=== PATIENT | female | born 1995 | race Caucasian/White ===

== ENCOUNTER → 2020-09-08 12:16 | Outpatient (CLI) | payer OTHER, SELFPAY ==
[2020-09-08 13:14] LABS: Alanine Aminotransferase 15 IU/L (<35); Albumin 4.9 g/dL (3.5-5.0); Albumin Globulin Ratio 1.6 (1.0-2.8); Alkaline Phosphatase 49 U/L (38-126); Aspartate Aminotransferase 26 IU/L (14-36); BUN Creatinine Ratio 15.6 (6-22); Bilirubin Total 0.9 mg/dL (0.2-1.3); Blood Urea Nitrogen 12 mg/dL (7-17); Calcium 9.7 mg/dL (8.4-10.2); Carbon Dioxide 28 mmol/L (22-32); Chloride 105 mmol/L (98-107); Estimated Glomerular Filt Rate > 60.0 mL/min (>60); Glucose 95 mg/dL (70-100); HEMOLYSIS < 15 (0-50); Potassium 4.3 mmol/L (3.4-5.1); Sodium 140 mmol/L (137-145); Total Protein 7.9 g/dL (6.3-8.2)
[2020-09-08 13:28] LABS: Add Manual Diff / Slide Review NO; Basophils Absolute Auto 0 /uL (0-100); Basophils Percent Auto 0.4 % (0-2); Eosinophils Absolute Auto 100 /uL (0-450); Eosinophils Percent Auto 1.2 % (2-4); Hematocrit 41.2 % (36-46); Hemoglobin 13.6 g/dL (12.0-16.0); Lymphocytes Absolute Auto 1300 /uL (1100-4500); Lymphocytes Percent Auto 28.8 % (25-40); Mean Corpuscular Hemoglobin 29.7 PG (26-34); Monocytes Absolute Auto 500 /uL (0-900); Neutrophils Absolute Auto 2800 /uL (1500-7000); Neutrophils Percent Auto 59.6 % (50-75); Platelet Count 205 X10^3/uL (150-400); Red Blood Cell Count 4.58 X10^6/uL (4.0-5.2); Red Cell Distribution Width 12.5 % (11.6-14.8); White Blood Cell Count 4.6 X10^3/uL (4.5-11.0)
[2020-09-08 14:09] LABS: Thyroid Stimulating Hormone 0.788 uIU/mL (0.47-4.68)
[2020-09-08 15:23] LABS: Vitamin D 25 Hydroxy (D3) 39.5 ng/mL (30.0-100.0)
== END ==
PROVIDERS: PCP Registered Nurse; Referring Provider Registered Nurse; Visit Provider Registered Nurse
DX: R53.83 Other fatigue (principal)
CPT/HCPCS: 36415; 80053; 82306; 84439; 84443; 85025

== ENCOUNTER → 2020-12-07 08:57 | Outpatient (CLI) | payer OTHER, SELFPAY ==
[2020-12-07 09:26] LABS: COVID19 -Nasal RAPID Negative (Negative)
== END ==
PROVIDERS: PCP Registered Nurse; Visit Provider Nurse Practitioner
DX: J02.9 Acute pharyngitis, unspecified (principal); Z20.822 Contact with and (suspected) exposure to COVID-19
CPT/HCPCS: 87070; 87635

== ENCOUNTER → 2021-03-16 10:52 | Outpatient (CLI) | payer OTHER, SELFPAY ==
[2021-03-16 11:24] LABS: COVID19 -Nasal RAPID Negative (Negative)
== END ==
PROVIDERS: Family Provider Family Medicine; PCP Family Medicine; Visit Provider Physician Assistant
DX: J02.9 Acute pharyngitis, unspecified (principal); R05 Cough; Z20.822 Contact with and (suspected) exposure to COVID-19
CPT/HCPCS: 87070; 87635

== ENCOUNTER 2021-06-04 10:15 | Outpatient (RCR) | payer OTHER, SELFPAY ==
--- NOTE | 2021-03-02 17:03 | PT.OIE ---
Current Diagnoses Other chronic pain (03/02/21) Lumbago with sciatica, left side (03/02/21) Muscle weakness (generalized) (03/02/21) Past Medical History (Last Reviewed 01/29/21 @ 17:05 by Henrry Carlson MD) Chronic back pain Depression No significant medical problems Visit Care Team Role Provider Type Henrry Carlson MD Attending Provider Physician Family Provider Primary Care Provider Referring Provider Specialty: Family Practice Address: [address] [place] [address], [facility] Email: [email or web address] Physical Therapy Initial Evaluation PT-OP-A Visit Information Start: 02/27/21 17:21 Freq: Status: Active Protocol: Document 03/02/21 09:37 LRN (Rec: 03/02/21 11:16 LRN [id number]) Out-Patient Physical Therapy Visit Information Visit Information Visit Type Initial Evaluation Visit Start Time 09:07 Visit Stop Time 09:52 Total Visit Minutes 45 Visit Number 1 Evaluation Information Evaluation Date 03/02/21 Precautions Precautions Mild neck pain, hx or disc bulge and tear. 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 Pt reports she started working out again and is now flared up but feels she needs to work out and it is causing her a little issue. Pt has intermittent low back pain most noticeable with lifting and increased activity . She states she has decreased sensation most of the time in the lateral L thigh, and intermittent sensation loss when at its worst. She has seen a chiro for the past 2 yrs with relief, but for the past year has had 30-40% relief. She has been tapered to once every 2 weeks. She is wanting to try something different for treatment, and because she is also considering having children in the future she wants to figure things out now . Prior Treatments and Tests MRI at initial injury showing L4/L5 Dsic bulge and tearing. [facility] cardiac care unit nurse (now 1x every 2 wks) took X- rays showed scoliosis (initial injury ms relaxors that she chose not to take). Small TNS unit used occasionally for sitting long, flying, or when bad. 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 Pt reports MRI indicated she had a protruding disc (L4-L5) and tearing that caused constant LBP for a year. Pt states it took 1 yr for the back to heal enough that she now has intermittent back pain. 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 Treatment Goals Patient/Caregiver Goals Education in self care to prevent worsening of symptoms and how to care for back. . HEP for self care to improve her activity tolerance. Decrease her pain level to 1-2 /10 and reduction of sharp pain with increased activity. 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 Current Functional Impairments (Reported) Functional Limitations- ADL's Lifting 1 yr old (22-25#). 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 Spouse is . Functional Limitations- Recreation/ Some barre ex and squats/push Hobbies ups 2-3x/week. Personal Factors Other Personal Factors That May Effect Nanny of 1 yr old. Therapy/Recovery Getting in 20 days, so stressed. PT-OP-C Subjective Start: 02/27/21 17:21 Freq: Status: Active Protocol: Document 03/02/21 09:37 LRN (Rec: 03/02/21 11:16 LRN [id number]) Patient Questionnaires Oswestry Low Back Index Oswestry Score 36 Oswestry Impairment 20 to 39% Impaired (Score 20- 39) OP-PT Pain Assessment Pain Assessment Grid Paper Pain Assessment Grid Completed Yes Location Yuval knees Pain Location Details Anterior/posterior knees, rated 3-4/10 Intensity 4 Scale Used Numeric (0 - 10) Description Aching,Sharp Frequency Intermittent Pain Aggravating Factors Activity Other Pain Aggravating Factors Squatting low back Pain Location Details L4,L5 center of back radiating down posterior yuval lateral hips/legs Intensity 5 Scale Used Numeric (0 - 10) Description Aching,Sharp Frequency Intermittent Radiating Location Down the leg sharp shooting pain with walking or irritation. Pain Aggravating Factors Activity,Lifting Other Pain Aggravating Factors Lifting back without core, running, walking cause shooting pain up to back. PT-OP-H Neuro Start: 02/27/21 17:21 Freq: Status: Active Protocol: Document 03/02/21 09:37 LRN (Rec: 03/02/21 11:16 LRN [id number]) Sensation Evaluation Gross Sensation Gross Sensation Left LE Impaired Comments Summary Comments Decreased sensation L lateral thigh Deep Tendon Reflex & Clonus Assessment Deep Tendon Reflex Bilateral Achilles Deep Tendon Reflex 3+ Normal But Brisk Bilateral Patellar Deep Tendon Reflex 3+ Normal But Brisk PT-OP-J Posture/Palpation/Skin Start: 02/27/21 17:21 Freq: Status: Active Protocol: Document 03/02/21 09:37 LRN (Rec: 03/02/21 11:16 LRN [id number]) Posture Evaluation Position Standing Head/C-Spine Posture Neutral Position,Forward Head T-Spine Posture Flexible Scoliosis on (L) L-Spine Posture Flattened Pelvis Posture (L) Rotated Anterior,(R) Rotated Posterior,(R) Iliac Crest Superior Knee Posture (L) Genu Valgus,(R) Genu Valgus,(L) Genu Recurvatum,(R) Genu Recurvatum Ankle/Foot Posture (L) Calcaneal Inversion Foot Arch (R) High Arch,(L) Medium Arch Comments Posture Comments Innominate: R posterior rot, L anterior rotated. PT-OP-K Range of Motion Start: 02/27/21 17:21 Freq: Status: Active Protocol: Document 03/02/21 09:37 LRN (Rec: 03/02/21 11:16 LRN [id number]) Lumbar Spine Range of Motion Lumbar Spine Active Degrees Testing Position Standing Flexion 115 Extension 20 Rotation Left 45 Rotation Right 45 Lateral Flexion Left 20 Lateral Flexion Right 5 ROM Limitations Pain Comments Trunk flex is with 80 deg's hip flex Trunk ext is with 3 deg's hip ext Hip Goniometric Range of Motion Hip Right Passive Testing Position Supine Internal Rotation 20 External Rotation 50 Left Passive Testing Position Supine Internal Rotation 20 External Rotation 60 PT-OP-L Special Tests Start: 02/27/21 17:21 Freq: Status: Active Protocol: Document 03/02/21 09:37 LRN (Rec: 03/02/21 11:16 LRN [id number]) Special Tests Lumbar Spine Special Tests Ash Test Results + bilaterally, mildly Comments Excessive innominate mobility Vertical Spine Loading Test Results Excessive trunk ext with pain in LB Standing Flexion Test Results + repetitive flexion PT-OP-M Strength Start: 02/27/21 17:21 Freq: Status: Active Protocol: Document 03/02/21 09:37 LRN (Rec: 03/02/21 11:16 LRN [id number]) Trunk Strength Trunk Manual Muscle Testing Testing Position Supine Core Stabilization Pt is not able to maintain core stability with MMT of LE' s with trunk rotation noticeable. Hip Strength Hip Manual Muscle Testing Right Flexion (L2) 4+ Good+ Abduction 5 Normal Adduction 5 Normal External Rotation 4 Good Internal Rotation 4 Good Left Flexion (L2) 4+ Good+ Abduction 5 Normal Adduction 5 Normal External Rotation 3 Fair Internal Rotation 4 Good Knee Strength Knee Manual Muscle Testing Right Flexion (S2) 4 Good Extension (L3) 4 Good Left Flexion (S2) 4 Good Extension (L3) 4 Good Ankle/Foot Strength Ankle and Foot Manual Muscle Testing Right Comments Generally 4/5 Left Comments Generally 4/5 PT-OP-Q Treatments Start: 02/27/21 17:21 Freq: Status: Active Protocol: Document 03/02/21 09:37 LRN (Rec: 03/02/21 11:16 LRN [id number]) Self-Care/Home Management Treatment Education Patient Education Home Exercise Program Other Education Discussed results of evaluation, goals and plan of care. Activities Self-Care/Home Management Activities I/S pt in Ilipsoas stretch ( Ash Test position) PT-OP-T Assessment and Plan Start: 02/27/21 17:21 Freq: Status: Active Protocol: Document 03/02/21 09:37 LRN (Rec: 03/02/21 11:16 LRN [id number]) Physical Therapy Assessment Rehab Potential Rehabilitation Potential Good Evaluation Complexity Number of Personal Factors/Comorbidities 1-2 Number of Body Systems Impaired 4 or More Clinical Presentation at Evaluation Evolving Impairments Impairments Activity Tolerance,Pain, Posture,ROM,Soft Tissue Mobility,Strength,Transfers Goals Three Impairment Decreased activity tolerance Short Term Goal (STG) Decrease pain to 4/10 STG Duration 04/06/21 Aluminum Pool Installer Goal (LTG) Reduction of sharp pain with increased activity. LTG Duration 05/31/21 Two Impairment Pain Short Term Goal (STG) Education in self care (body mechanics, pain management) to prevent worsening of symptoms . STG Duration 03/16/21 Care Home Goal (LTG) Decrease her pain level to 1-2 /10 LTG Duration 05/01/21 One Impairment HEP Short Term Goal (STG) Pt educated in self care pain management techniques to include modalities, positioning, modification of exer and posture. STG Duration 03/30/21 Care Home Goal (LTG) HEP for self care to improve her activity tolerance. LTG Duration 05/01/21 Assessment Summary Assessment Pt is a 25 yo female with a history of L4, L5 disc protrusion and tearing 3 yrs ago. She demonstrates postural changes and innominates: R posterior rotated, L anterior rotated, decreased trunk FB (lumbar spine) and R SB mobility, and decreased R hip ER, bilateral IR & possibly Ilipsoas mobility. She appears to have good hip extension, but she excessively moves in the pelvis. She has core weakness and mild hip weakness except L hip IR is weak at 3/5. She has general weakness of her LE 's. Complaints of intermittent numbness in the L lateral thigh when at back pain is at its worst is probably related to the lateral femoral cutaneous nerve; therefore body mechanics and lumbar stabilization will be beneficial. The pt will benefit from skilled physical therapy for therapeutic ex and activity, body mechanics training, pelvic stabilization , manual therapy and pt education in self care, pain management and modalities as needed for pain. Physical Therapy Plan Frequency and Duration Frequency of Treatment 2x/Week Plan of Care Start Date 03/02/21 Plan of Care End Date 05/01/21 Therapeutic Interventions Therapeutic Interventions Balance Training,Gait Training ,Home Exercise Program,Joint Mobilizations,Manual Therapy, Neuromuscular Re-education, Patient/Caregiver Education, Self-Care/Home Management,Soft Tissue Mobilization,Taping, Therapeutic Activities, Therapeutic Exercises Modalities Cold Pack/Ice Massage,Electric Stimulation,Hot Packs, Traction- Mechanical, Ultrasound Next Visit Focus/Plan Next Note Type Treatment Note Next Visit Plan Check March test and correct pelvic obility f/b pelvic and lumbar stabilization. Manual stretch to Iliopsoas. LE strengthening, transfer training to reduce low back strain, body mechanics training, manual therapy for soft tissue dysfunction and pt education in self care, posture, pain management and modalities for pain.
--- NOTE | 2021-03-02 17:04 | PT.OPPOC ---
Physical, Occupational & Speech Therapy At [facility] Current Diagnoses Other chronic pain (03/02/21) Lumbago with sciatica, left side (03/02/21) Muscle weakness (generalized) (03/02/21) Visit Care Team Role Provider Type Henrry Carlson MD Attending Provider Physician Family Provider Primary Care Provider Referring Provider Specialty: Family Practice Address: [address] [place] [address], [facility] Email: [email or web address] Plan Of Care PT-OP-T Assessment and Plan Start: 02/27/21 17:21 Freq: Status: Active Protocol: Document 03/02/21 09:37 LRN (Rec: 03/02/21 11:16 LRN [id number]) Physical Therapy Assessment Rehab Potential Rehabilitation Potential Good Evaluation Complexity Number of Personal Factors/Comorbidities 1-2 Number of Body Systems Impaired 4 or More Clinical Presentation at Evaluation Evolving Impairments Impairments Activity Tolerance,Pain, Posture,ROM,Soft Tissue Mobility,Strength,Transfers Goals Three Impairment Decreased activity tolerance Short Term Goal (STG) Decrease pain to 4/10 STG Duration 04/06/21 Retirement Goal (LTG) Reduction of sharp pain with increased activity. LTG Duration 05/31/21 Two Impairment Pain Short Term Goal (STG) Education in self care (body mechanics, pain management) to prevent worsening of symptoms . STG Duration 03/16/21 Customer Experience Analyst Goal (LTG) Decrease her pain level to 1-2 /10 LTG Duration 05/01/21 One Impairment HEP Short Term Goal (STG) Pt educated in self care pain management techniques to include modalities, positioning, modification of exer and posture. STG Duration 03/30/21 Customer Experience Analyst Goal (LTG) HEP for self care to improve her activity tolerance. LTG Duration 05/01/21 Assessment Summary Assessment Pt is a 25 yo female with a history of L4, L5 disc protrusion and tearing 3 yrs ago. She demonstrates postural changes and innominates: R posterior rotated, L anterior rotated, decreased trunk FB (lumbar spine) and R SB mobility, and decreased R hip ER, bilateral IR & possibly Ilipsoas mobility. She appears to have good hip extension, but she excessively moves in the pelvis. She has core weakness and mild hip weakness except L hip IR is weak at 3/5. She has general weakness of her LE 's. Complaints of intermittent numbness in the L lateral thigh when at back pain is at its worst is probably related to the lateral femoral cutaneous nerve; therefore body mechanics and lumbar stabilization will be beneficial. The pt will benefit from skilled physical therapy for therapeutic ex and activity, body mechanics training, pelvic stabilization , manual therapy and pt education in self care, pain management and modalities as needed for pain. Physical Therapy Plan Frequency and Duration Frequency of Treatment 2x/Week Plan of Care Start Date 03/02/21 Plan of Care End Date 05/01/21 Therapeutic Interventions Therapeutic Interventions Balance Training,Gait Training ,Home Exercise Program,Joint Mobilizations,Manual Therapy, Neuromuscular Re-education, Patient/Caregiver Education, Self-Care/Home Management,Soft Tissue Mobilization,Taping, Therapeutic Activities, Therapeutic Exercises Modalities Cold Pack/Ice Massage,Electric Stimulation,Hot Packs, Traction- Mechanical, Ultrasound Next Visit Focus/Plan Next Note Type Treatment Note Next Visit Plan Check March test and correct pelvic obility f/b pelvic and lumbar stabilization. Manual stretch to Iliopsoas. LE strengthening, transfer training to reduce low back strain, body mechanics training, manual therapy for soft tissue dysfunction and pt education in self care, posture, pain management and modalities for pain. Plan of Care Dates Plan of Care Start Date 03/02/21 Plan of Care End Date 05/01/21 Electronically Signed by: Zulma Morris, PT 03/02/21 [id number] Please Sign and Return: I have reviewed this Plan of Care and certify that the skilled therapy services above are required to meet the patient?s needs. Physician Signature Date Printed Name and Credentials Clinical Instructor Signature Printed Name and Credentials
--- NOTE | 2021-03-05 12:29 | PT.OTN ---
Current Diagnoses Other chronic pain (03/05/21) Lumbago with sciatica, left side (03/05/21) Muscle weakness (generalized) (03/05/21) Physical Therapy Treatment Note PT-OP-A Visit Information Start: 02/27/21 17:21 Freq: Status: Active Protocol: Document 03/05/21 10:32 LRN (Rec: 03/05/21 12:28 LRN [id number]) Out-Patient Physical Therapy Visit Information Visit Information Visit Type Treatment Note Visit Start Time 10:32 Visit Stop Time 11:19 Total Visit Minutes 47 Visit Number 2 Evaluation Information Evaluation Date 03/02/21 Precautions Precautions Mild neck pain, hx or disc bulge and tear. 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 Pt reports she started working out again and is now flared up but feels she needs to work out and it is causing her a little issue. Pt has intermittent low back pain most noticeable with lifting and increased activity . She states she has decreased sensation most of the time in the lateral L thigh, and intermittent sensation loss when at its worst. She has seen a chiro for the past 2 yrs with relief, but for the past year has had 30-40% relief. She has been tapered to once every 2 weeks. She is wanting to try something different for treatment, and because she is also considering having children in the future she wants to figure things out now . Prior Treatments and Tests MRI at initial injury showing L4/L5 Dsic bulge and tearing. [facility] [address] medicare coordinator (now 1x every 2 wks) took X- rays showed scoliosis (initial injury ms relaxors that she chose not to take). Small TNS unit used occasionally for sitting long, flying, or when bad. 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 Pt reports MRI indicated she had a protruding disc (L4-L5) and tearing that caused constant LBP for a year. Pt states it took 1 yr for the back to heal enough that she now has intermittent back pain. 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 Treatment Goals Patient/Caregiver Goals Education in self care to prevent worsening of symptoms and how to care for back. . HEP for self care to improve her activity tolerance. Decrease her pain level to 1-2 /10 and reduction of sharp pain with increased activity. 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 Current Functional Impairments (Reported) Functional Limitations- ADL's Lifting 1 yr old (22-25#). 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 Spouse is . Functional Limitations- Recreation/ Some barre ex and squats/push Hobbies ups 2-3x/week. Personal Factors Other Personal Factors That May Effect Nanny of 1 yr old. Therapy/Recovery Getting in 20 days, so stressed. PT-OP-C Subjective Start: 02/27/21 17:21 Freq: Status: Active Protocol: Document 03/05/21 10:32 LRN (Rec: 03/05/21 12:28 LRN [id number]) OP-PT Subjective Patient Comments Patient Comments No change didn't work out this weekend Planning on restarting tomorrow. PT-OP-H Neuro Start: 02/27/21 17:21 Freq: Status: Active Protocol: Document 03/02/21 09:37 LRN (Rec: 03/02/21 11:16 LRN [id number]) Sensation Evaluation Gross Sensation Gross Sensation Left LE Impaired Comments Summary Comments Decreased sensation L lateral thigh Deep Tendon Reflex & Clonus Assessment Deep Tendon Reflex Bilateral Achilles Deep Tendon Reflex 3+ Normal But Brisk Bilateral Patellar Deep Tendon Reflex 3+ Normal But Brisk PT-OP-J Posture/Palpation/Skin Start: 02/27/21 17:21 Freq: Status: Active Protocol: Document 03/05/21 10:32 LRN (Rec: 03/05/21 12:28 LRN [id number]) Palpation Assessment Location ASIS Palpation Location ASIS Palpation Details Supine: L slightly deep, sligtly superior to R side. PT-OP-K Range of Motion Start: 02/27/21 17:21 Freq: Status: Active Protocol: Document 03/02/21 09:37 LRN (Rec: 03/02/21 11:16 LRN [id number]) Lumbar Spine Range of Motion Lumbar Spine Active Degrees Testing Position Standing Flexion 115 Extension 20 Rotation Left 45 Rotation Right 45 Lateral Flexion Left 20 Lateral Flexion Right 5 ROM Limitations Pain Comments Trunk flex is with 80 deg's hip flex Trunk ext is with 3 deg's hip ext Hip Goniometric Range of Motion Hip Right Passive Testing Position Supine Internal Rotation 20 External Rotation 50 Left Passive Testing Position Supine Internal Rotation 20 External Rotation 60 PT-OP-L Special Tests Start: 02/27/21 17:21 Freq: Status: Active Protocol: Document 03/05/21 10:32 LRN (Rec: 03/05/21 12:28 LRN [id number]) Special Tests Lumbar Spine Special Tests March Test Comments R side moves a little more than L PT-OP-M Strength Start: 02/27/21 17:21 Freq: Status: Active Protocol: Document 03/02/21 09:37 LRN (Rec: 03/02/21 11:16 LRN [id number]) Trunk Strength Trunk Manual Muscle Testing Testing Position Supine Core Stabilization Pt is not able to maintain core stability with MMT of LE' s with trunk rotation noticeable. Hip Strength Hip Manual Muscle Testing Right Flexion (L2) 4+ Good+ Abduction 5 Normal Adduction 5 Normal External Rotation 4 Good Internal Rotation 4 Good Left Flexion (L2) 4+ Good+ Abduction 5 Normal Adduction 5 Normal External Rotation 3 Fair Internal Rotation 4 Good Knee Strength Knee Manual Muscle Testing Right Flexion (S2) 4 Good Extension (L3) 4 Good Left Flexion (S2) 4 Good Extension (L3) 4 Good Ankle/Foot Strength Ankle and Foot Manual Muscle Testing Right Comments Generally 4/5 Left Comments Generally 4/5 PT-OP-Q Treatments Start: 02/27/21 17:21 Freq: Status: Active Protocol: Document 03/05/21 10:32 LRN (Rec: 03/05/21 12:28 LRN [id number]) Therapeutic Exercises Supine Exercises BKFO w/deep breathing Supine Exercise Name BKFO w/deep breathing with & w /o TB Side bilateral Resistance Lev 2 TB, pillow Reps/Minutes 12'' Comments Extra time for trianing of coordination of movement( breathing & w/TA tight) LE Roll in/out w/deep breathing Supine Exercise Name LE Roll in/out w/deep breathing Reps/Minutes 8' Comments Extra time with phys cuing needed to coordinate movement. Deep Breathing Supine Exercise Name deep Breathing Side bilateral Reps/Minutes 3' Comments Phys cuing and self cuing needed for abdominal excursion Self-Care/Home Management Treatment Education Patient Education Home Exercise Program Other Education Pt educated in proper breathing with ex's and connection to PF strength and bladder positioning. Discussed at length pt's constipation episodes and recommendations to decrease constipation. Activities Self-Care/Home Management Activities I/S pt in LE roll in/outs & bridgning with TB around knees . Issued & reviewed HEP: LE roll in/outs & Core stab of Bridging with added I/S for breathing and use of TBand for hip AB. PT-OP-T Assessment and Plan Start: 02/27/21 17:21 Freq: Status: Active Protocol: Document 03/05/21 10:32 LRN (Rec: 03/05/21 12:28 LRN [id number]) Physical Therapy Assessment Goals Three Impairment Decreased activity tolerance Short Term Goal (STG) Decrease pain to 4/10 STG Duration 04/06/21 Retirement Goal (LTG) Reduction of sharp pain with increased activity. LTG Duration 05/31/21 Two Impairment Pain Short Term Goal (STG) Education in self care (body mechanics, pain management) to prevent worsening of symptoms . STG Duration 03/16/21 Inspector Assembly Goal (LTG) Decrease her pain level to 1-2 /10 LTG Duration 05/01/21 One Impairment HEP Short Term Goal (STG) Pt educated in self care pain management techniques to include modalities, positioning, modification of exer and posture. STG Duration 03/30/21 Retirement Goal (LTG) HEP for self care to improve her activity tolerance. LTG Duration 05/01/21 Assessment Summary Assessment Pt mostly level in pelvis to start. Slight deep in supine on L ASIS. Pt TA tght and tends to breathing. With bridging pt L ASIS tends to drop down and L Paraspinals tighter than R. Physical Therapy Plan Frequency and Duration Frequency of Treatment 2x/Week Plan of Care Start Date 03/02/21 Plan of Care End Date 05/01/21 Next Visit Focus/Plan Next Note Type Treatment Note Next Visit Plan Review issued HEP and monitor pelvic/core stability with bridge keeping neutral spine positioning. Pelvic and lumbar stabilization. ?Manual stretch to Iliopsoas. LE strengthening, transfer training to reduce low back strain, body mechanics training, manual therapy for soft tissue dysfunction and pt education in self care, posture, pain management and modalities for pain.
--- NOTE | 2021-04-06 10:04 | PT.OTN ---
Current Diagnoses Other chronic pain (04/06/21) Lumbago with sciatica, left side (04/06/21) Muscle weakness (generalized) (04/06/21) Physical Therapy Treatment Note PT-OP-A Visit Information Start: 02/27/21 17:21 Freq: Status: Active Protocol: Document 04/06/21 09:05 LRN (Rec: 04/06/21 10:03 LRN [id number]) Out-Patient Physical Therapy Visit Information Visit Information Visit Type Treatment Note Visit Start Time 09:04 Visit Stop Time 09:46 Total Visit Minutes 42 Visit Number 3 Evaluation Information Evaluation Date 03/02/21 Precautions Precautions Mild neck pain, hx or disc bulge and tear. PT-OP-B Current Condition Start: 02/27/21 17:21 Freq: Status: Active Protocol: Document 03/02/21 09:37 LRN (Rec: 03/02/21 11:16 LRN [id number]) Current Condition History of Current Condition Onset Date 2 yrs ago Current Complaints Intermittent sharp LBP that radiates into roll handler legs/ knees, rated 3-4/10 History of Current Condition See Developmental History section. Pt reports she started working out again and is now flared up but feels she needs to work out and it is causing her a little issue. Pt has intermittent low back pain most noticeable with lifting and increased activity . She states she has decreased sensation most of the time in the lateral L thigh, and intermittent sensation loss when at its worst. She has seen a chiro for the past 2 yrs with relief, but for the past year has had 30-40% relief. She has been tapered to once every 2 weeks. She is wanting to try something different for treatment, and because she is also considering having children in the future she wants to figure things out now . Prior Treatments and Tests MRI at initial injury showing L4/L5 Dsic bulge and tearing. [facility] [address] ocular care technician (now 1x every 2 wks) took X- rays showed scoliosis (initial injury ms relaxors that she chose not to take). Small TNS unit used occasionally for sitting long, flying, or when bad. 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 Pt reports MRI indicated she had a protruding disc (L4-L5) and tearing that caused constant LBP for a year. Pt states it took 1 yr for the back to heal enough that she now has intermittent back pain. 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 Treatment Goals Patient/Caregiver Goals Education in self care to prevent worsening of symptoms and how to care for back. . HEP for self care to improve her activity tolerance. Decrease her pain level to 1-2 /10 and reduction of sharp pain with increased activity. 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 Current Functional Impairments (Reported) Functional Limitations- ADL's Lifting 1 yr old (22-25#). 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 Spouse is . Functional Limitations- Recreation/ Some barre ex and squats/push Hobbies ups 2-3x/week. Personal Factors Other Personal Factors That May Effect Nanny of 1 yr old. Therapy/Recovery Getting in 20 days, so stressed. PT-OP-C Subjective Start: 02/27/21 17:21 Freq: Status: Active Protocol: Document 04/06/21 09:05 LRN (Rec: 04/06/21 10:03 LRN [id number]) OP-PT Subjective Patient Comments Patient Comments Hurting more due to sitting and plan travels. Hips and back pain is worse. For 2 weeks has been constipated and has been taking laxatives. Has gone 2 good times in past 2 weeks, other times not good stools. Pain in LBP/L hip is 4-5/10, Sensation in L lateral thigh is normal. 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 PT-OP-H Neuro Start: 02/27/21 17:21 Freq: Status: Active Protocol: Document 03/02/21 09:37 LRN (Rec: 03/02/21 11:16 LRN [id number]) Sensation Evaluation Gross Sensation Gross Sensation Left LE Impaired Comments Summary Comments Decreased sensation L lateral thigh Deep Tendon Reflex & Clonus Assessment Deep Tendon Reflex Bilateral Achilles Deep Tendon Reflex 3+ Normal But Brisk Bilateral Patellar Deep Tendon Reflex 3+ Normal But Brisk PT-OP-J Posture/Palpation/Skin Start: 02/27/21 17:21 Freq: Status: Active Protocol: Document 03/05/21 10:32 LRN (Rec: 03/05/21 12:28 LRN [id number]) Palpation Assessment Location ASIS Palpation Location ASIS Palpation Details Supine: L slightly deep, sligtly superior to R side. PT-OP-K Range of Motion Start: 02/27/21 17:21 Freq: Status: Active Protocol: Document 03/02/21 09:37 LRN (Rec: 03/02/21 11:16 LRN [id number]) Lumbar Spine Range of Motion Lumbar Spine Active Degrees Testing Position Standing Flexion 115 Extension 20 Rotation Left 45 Rotation Right 45 Lateral Flexion Left 20 Lateral Flexion Right 5 ROM Limitations Pain Comments Trunk flex is with 80 deg's hip flex Trunk ext is with 3 deg's hip ext Hip Goniometric Range of Motion Hip Right Passive Testing Position Supine Internal Rotation 20 External Rotation 50 Left Passive Testing Position Supine Internal Rotation 20 External Rotation 60 PT-OP-L Special Tests Start: 02/27/21 17:21 Freq: Status: Active Protocol: Document 03/05/21 10:32 LRN (Rec: 03/05/21 12:28 LRN [id number]) Special Tests Lumbar Spine Special Tests March Test Comments R side moves a little more than L PT-OP-M Strength Start: 02/27/21 17:21 Freq: Status: Active Protocol: Document 03/02/21 09:37 LRN (Rec: 03/02/21 11:16 LRN [id number]) Trunk Strength Trunk Manual Muscle Testing Testing Position Supine Core Stabilization Pt is not able to maintain core stability with MMT of LE' s with trunk rotation noticeable. Hip Strength Hip Manual Muscle Testing Right Flexion (L2) 4+ Good+ Abduction 5 Normal Adduction 5 Normal External Rotation 4 Good Internal Rotation 4 Good Left Flexion (L2) 4+ Good+ Abduction 5 Normal Adduction 5 Normal External Rotation 3 Fair Internal Rotation 4 Good Knee Strength Knee Manual Muscle Testing Right Flexion (S2) 4 Good Extension (L3) 4 Good Left Flexion (S2) 4 Good Extension (L3) 4 Good Ankle/Foot Strength Ankle and Foot Manual Muscle Testing Right Comments Generally 4/5 Left Comments Generally 4/5 PT-OP-Q Treatments Start: 02/27/21 17:21 Freq: Status: Active Protocol: Document 04/06/21 09:05 LRN (Rec: 04/06/21 10:03 LRN [id number]) Cardio Equipment Treadmill Duration (Minutes) 6 Speed 3.2 Incline 0 Therapeutic Exercises Supine Exercises Bridging Supine Exercise Name TA/Bridge focus on core stability Reps/Minutes 3'+2' after STM Hip flexor stretch Supine Exercise Name Ash Test stretch Side bilateral Reps/Minutes 6' BKTC stretch Supine Exercise Name KTC stretch Side bilateral Reps/Minutes 6' Comments Extra time for teaching seating of femoral head in socket prior to KTC Deep Breathing Supine Exercise Name deep Breathing Side bilateral Reps/Minutes 3' Comments Phys cuing and self cuing needed for abdominal excursion Manual Therapy Treatment Soft Tissue Mobilization Sacral Left ALA Body Location L ALA Mobilization Type Myofascial Release Intensity/Depth PA glide Body Position Supine Ilipsoas stretch Body Location Roque ilipsoas Mobilization Type Strumming,Sustained Pressure Intensity/Depth Moderate Body Position Supine w/knees on bolster Self-Care/Home Management Treatment Education Patient Education Home Exercise Program Other Education Reviewed pt's plan on return to exercise. Recommended pt avoid lying on small ball at roque Sacrum, and to hold Jane Work until core more stabiized . Reviewed precaution of ex ( coral abdominal ex) of breath holding. Activities Self-Care/Home Management Activities Reviewed pt's hip stretches ( Quad, hip ER/Piriformis, KTC). I/S pt in proper seating of femural head in socket prior to KTC stretch. PT-OP-T Assessment and Plan Start: 02/27/21 17:21 Freq: Status: Active Protocol: Document 04/06/21 09:05 LRN (Rec: 04/06/21 10:03 LRN [id number]) Physical Therapy Assessment Goals Three Impairment Decreased activity tolerance Short Term Goal (STG) Decrease pain to 4/10. (04/06/21: Pain rating is 4-5/ 10) STG Duration 04/06/21 (04/06/21: Progressing) Longterm Goal (LTG) Reduction of sharp pain with increased activity. (04/06/21: Sharp pains have decreased, but pt hasn't returned to prior routine on coming back from wedding). LTG Duration 05/31/21 (04/06/21: ? Progressing) Two Impairment Pain Short Term Goal (STG) Education in self care (body mechanics, pain management) to prevent worsening of symptoms . STG Duration 03/16/21 Longterm Goal (LTG) Decrease her pain level to 1-2 /10 LTG Duration 05/01/21 One Impairment HEP Short Term Goal (STG) Pt educated in self care pain management techniques to include modalities, positioning, modification of exer and posture. STG Duration 03/30/21 Longterm Goal (LTG) HEP for self care to improve her activity tolerance. LTG Duration 05/01/21 Progress Towards Goals Progress Comments Normalized pelvis deep L ASIS after STM. Assessment Summary Assessment Slighltly deep on L ASIS in supine and with bridging, normalized after manual STM, then pt able to perform bridge with neutral pelvis. Overall pt pain appears less on return from her wedding, but pt reported her pain was worse . Physical Therapy Plan Frequency and Duration Frequency of Treatment 2x/Week Plan of Care Start Date 03/02/21 Plan of Care End Date 05/01/21 Next Visit Focus/Plan Next Note Type Treatment Note Next Visit Plan Review POC for visits before POC expires. Pelvic and lumbar stabilization. ?Manual stretch to Iliopsoas. Pt education in self care, pain management, posture, and modalities for pain. LE strengthening, transfer training to reduce low back strain, body mechanics training, manual therapy for soft tissue dysfunction.
--- NOTE | 2021-04-09 07:30 | PT-OP ANOTE ---
Pt called to cancel appt at 04/08/21 at 23:28 not feeling well.
--- NOTE | 2021-04-30 09:39 | PT-OP ANOTE ---
Pt did not show for today's appt busy at work, when called her she stated she cancelled today's appt last week. 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 Pt has only been seen 2 appts since eval and had to cancel all other appts. She is unsure if will be able to make last appt 05/07 as of now with [facility]. [facility] informed pt that her POC expires tomorrow 05/01 and is unable to see [facility], needs to follow up with PT to update goals, POC and complete progress note, she verbalized understanding but doesn't know when can do this. service desk associate asked I forward her phone call to discuss further what can do for her. Pt is interested in continuing rehab but challenged with matching up her schedule with our available appts times.
--- NOTE | 2021-04-30 15:42 | PT.OTN ---
Current Diagnoses Other chronic pain (04/30/21) Lumbago with sciatica, left side (04/30/21) Muscle weakness (generalized) (04/30/21) Physical Therapy Treatment Note PT-OP-A Visit Information Start: 02/27/21 17:21 Freq: Status: Active Protocol: Document 04/30/21 11:30 AMB (Rec: 04/30/21 11:38 AMB [id number]) Out-Patient Physical Therapy Visit Information Visit Information Visit Type Progress Note Visit Start Time 11:30 Visit Stop Time 12:00 Total Visit Minutes 30 Visit Number 4 PT-OP-B Current Condition Start: 02/27/21 17:21 Freq: Status: Active Protocol: Document 03/02/21 09:37 LRN (Rec: 03/02/21 11:16 LRN [id number]) Current Condition History of Current Condition Onset Date 2 yrs ago Current Complaints Intermittent sharp LBP that radiates into agronomy 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 Pt reports she started working out again and is now flared up but feels she needs to work out and it is causing her a little issue. Pt has intermittent low back pain most noticeable with lifting and increased activity . She states she has decreased sensation most of the time in the lateral L thigh, and intermittent sensation loss when at its worst. She has seen a chiro for the past 2 yrs with relief, but for the past year has had 30-40% relief. She has been tapered to once every 2 weeks. She is wanting to try something different for treatment, and because she is also considering having children in the future she wants to figure things out now . Prior Treatments and Tests MRI at initial injury showing L4/L5 Dsic bulge and tearing. 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 Small TNS unit used occasionally for sitting long, flying, or when bad. 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 Pt reports MRI indicated she had a protruding disc (L4-L5) and tearing that caused constant LBP for a year. Pt states it took 1 yr for the back to heal enough that she now has intermittent back pain. 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 Treatment Goals Patient/Caregiver Goals Education in self care to prevent worsening of symptoms and how to care for back. . HEP for self care to improve her activity tolerance. Decrease her pain level to 1-2 /10 and reduction of sharp pain with increased activity. 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 Current Functional Impairments (Reported) Functional Limitations- ADL's Lifting 1 yr old (22-25#). 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 Spouse is . Functional Limitations- Recreation/ Some barre ex and squats/push Hobbies ups 2-3x/week. Personal Factors Other Personal Factors That May Effect Nanny of 1 yr old. Therapy/Recovery Getting in 20 days, so stressed. PT-OP-C Subjective Start: 02/27/21 17:21 Freq: Status: Active Protocol: Document 04/30/21 11:30 AMB (Rec: 04/30/21 15:42 AMB [id number]) OP-PT Subjective Patient Comments Patient Comments Pt reports pain has been variable, about 4/10 right now , but extended sitting hurts. Even doing bibi pose recentling increased tingling down Right leg, but usually Left leg is the one that is numb. PT-OP-H Neuro Start: 02/27/21 17:21 Freq: Status: Active Protocol: Document 03/02/21 09:37 LRN (Rec: 03/02/21 11:16 LRN [id number]) Sensation Evaluation Gross Sensation Gross Sensation Left LE Impaired Comments Summary Comments Decreased sensation L lateral thigh Deep Tendon Reflex & Clonus Assessment Deep Tendon Reflex Bilateral Achilles Deep Tendon Reflex 3+ Normal But Brisk Bilateral Patellar Deep Tendon Reflex 3+ Normal But Brisk PT-OP-J Posture/Palpation/Skin Start: 02/27/21 17:21 Freq: Status: Active Protocol: Document 03/05/21 10:32 LRN (Rec: 03/05/21 12:28 LRN [id number]) Palpation Assessment Location ASIS Palpation Location ASIS Palpation Details Supine: L slightly deep, sligtly superior to R side. PT-OP-K Range of Motion Start: 02/27/21 17:21 Freq: Status: Active Protocol: Document 03/02/21 09:37 LRN (Rec: 03/02/21 11:16 LRN [id number]) Lumbar Spine Range of Motion Lumbar Spine Active Degrees Testing Position Standing Flexion 115 Extension 20 Rotation Left 45 Rotation Right 45 Lateral Flexion Left 20 Lateral Flexion Right 5 ROM Limitations Pain Comments Trunk flex is with 80 deg's hip flex Trunk ext is with 3 deg's hip ext Hip Goniometric Range of Motion Hip Right Passive Testing Position Supine Internal Rotation 20 External Rotation 50 Left Passive Testing Position Supine Internal Rotation 20 External Rotation 60 PT-OP-L Special Tests Start: 02/27/21 17:21 Freq: Status: Active Protocol: Document 03/05/21 10:32 LRN (Rec: 03/05/21 12:28 LRN [id number]) Special Tests Lumbar Spine Special Tests March Test Comments R side moves a little more than L PT-OP-M Strength Start: 02/27/21 17:21 Freq: Status: Active Protocol: Document 03/02/21 09:37 LRN (Rec: 03/02/21 11:16 LRN [id number]) Trunk Strength Trunk Manual Muscle Testing Testing Position Supine Core Stabilization Pt is not able to maintain core stability with MMT of LE' s with trunk rotation noticeable. Hip Strength Hip Manual Muscle Testing Right Flexion (L2) 4+ Good+ Abduction 5 Normal Adduction 5 Normal External Rotation 4 Good Internal Rotation 4 Good Left Flexion (L2) 4+ Good+ Abduction 5 Normal Adduction 5 Normal External Rotation 3 Fair Internal Rotation 4 Good Knee Strength Knee Manual Muscle Testing Right Flexion (S2) 4 Good Extension (L3) 4 Good Left Flexion (S2) 4 Good Extension (L3) 4 Good Ankle/Foot Strength Ankle and Foot Manual Muscle Testing Right Comments Generally 4/5 Left Comments Generally 4/5 PT-OP-Q Treatments Start: 02/27/21 17:21 Freq: Status: Active Protocol: Document 04/30/21 11:30 AMB (Rec: 04/30/21 15:42 AMB [id number]) Therapeutic Exercises Supine Exercises IT band stretch Side bilateral Comments Tightness but no tingling Sitting Exercises TA stabilization Sitting Exercise Name with posterior pelvic tilt Therapeutic Activity Therapeutic Activity 1 Name Avoid bend, lift, twist Reps/Minutes 20 Comments Instruction in body mechanics with nannying, practiced lifting 10# from waist height, avoiding going into anterior pelvic tilt. Discussed how to put 15 month old in car seat, crib, and stroller with best body mechanics possible. PT-OP-T Assessment and Plan Start: 02/27/21 17:21 Freq: Status: Active Protocol: Document 04/30/21 11:30 AMB (Rec: 04/30/21 11:38 AMB [id number]) Physical Therapy Assessment Goals Three Impairment Decreased activity tolerance Short Term Goal (STG) Decrease pain to 4/10. (04/30/21: Pain rating is 4-5/ 10) STG Duration 4/10 current 04/30 [facility] Goal (LTG) Reduction of sharp pain with increased activity. (04/06/21: Sharp pains have decreased, but pt hasn't returned to prior routine on coming back from wedding). LTG Duration 06/25/21 Two Impairment Pain Short Term Goal (STG) Education in self care (body mechanics, pain management) to prevent worsening of symptoms . STG Duration 03/16/21--PROGRESS MADE [facility] Goal (LTG) Decrease her pain level to 1-2 /10 LTG Duration 06/25/21 One Impairment HEP Short Term Goal (STG) Pt educated in self care pain management techniques to include modalities, positioning, modification of exer and posture. STG Duration 03/30/21 [facility] Goal (LTG) HEP for self care to improve her activity tolerance. LTG Duration 06/25/21- PROGRESS MADE Assessment Summary Assessment Candace has had a difficult time attending physical therapy, and therefore has not really improved. She did benefit from instruction in body mechanics today. Her pain levels have been very variable and this has been very frustrating for her. She would continue to benefit from physical therapy to instruct in body mechanics, and self care to reduce her pain. Physical Therapy Plan Frequency and Duration Frequency of Treatment 2x/Week Duration of Treatment 8 weeks Plan of Care Start Date 04/30/21 Plan of Care End Date 06/25/21 Therapeutic Interventions Therapeutic Interventions Balance Training,Gait Training ,Home Exercise Program,Joint Mobilizations,Manual Therapy, Neuromuscular Re-education, Patient/Caregiver Education, Self-Care/Home Management,Soft Tissue Mobilization,Taping, Therapeutic Activities, Therapeutic Exercises Modalities Cold Pack/Ice Massage,Electric Stimulation,Hot Packs, Traction- Mechanical, Ultrasound Next Visit Focus/Plan Next Note Type Treatment Note Next Visit Plan Instruct in HEP for independent management of condition (HEP), body mechanics training. Review POC for visits before POC expires. Pelvic and lumbar stabilization. ?Manual stretch to Iliopsoas. Pt education in self care, pain management, posture, and modalities for pain. LE strengthening, transfer training to reduce low back strain, body mechanics training, manual therapy for soft tissue dysfunction.
--- NOTE | 2021-04-30 15:43 | PT.OPPOC ---
Physical, Occupational & Speech Therapy At [facility] Current Diagnoses Other chronic pain (04/30/21) Lumbago with sciatica, left side (04/30/21) Muscle weakness (generalized) (04/30/21) Visit Care Team Role Provider Type Henrry Carlson MD Attending Provider Physician Family Provider Primary Care Provider Referring Provider Specialty: Family Practice Address: [address] [place] [address], [facility] Email: [email or web address] Plan Of Care PT-OP-T Assessment and Plan Start: 02/27/21 17:21 Freq: Status: Active Protocol: Document 04/30/21 11:30 AMB (Rec: 04/30/21 11:38 AMB [id number]) Physical Therapy Assessment Goals Three Impairment Decreased activity tolerance Short Term Goal (STG) Decrease pain to 4/10. 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 (04/06/21: Sharp pains have decreased, but pt hasn't returned to prior routine on coming back from wedding). LTG Duration 06/25/21 Two Impairment Pain Short Term Goal (STG) Education in self care (body mechanics, pain management) to prevent worsening of symptoms . STG Duration 03/16/21--PROGRESS MADE [facility] Goal (LTG) Decrease her pain level to 1-2 /10 LTG Duration 06/25/21 One Impairment HEP Short Term Goal (STG) Pt educated in self care pain management techniques to include modalities, positioning, modification of exer and posture. STG Duration 03/30/21 [facility] Goal (LTG) HEP for self care to improve her activity tolerance. LTG Duration 06/25/21- PROGRESS MADE Assessment Summary Assessment Candace has had a difficult time attending physical therapy, and therefore has not really improved. She did benefit from instruction in body mechanics today. Her pain levels have been very variable and this has been very frustrating for her. She would continue to benefit from physical therapy to instruct in body mechanics, and self care to reduce her pain. Physical Therapy Plan Frequency and Duration Frequency of Treatment 2x/Week Duration of Treatment 8 weeks Plan of Care Start Date 04/30/21 Plan of Care End Date 06/25/21 Therapeutic Interventions Therapeutic Interventions Balance Training,Gait Training ,Home Exercise Program,Joint Mobilizations,Manual Therapy, Neuromuscular Re-education, Patient/Caregiver Education, Self-Care/Home Management,Soft Tissue Mobilization,Taping, Therapeutic Activities, Therapeutic Exercises Modalities Cold Pack/Ice Massage,Electric Stimulation,Hot Packs, Traction- Mechanical, Ultrasound Next Visit Focus/Plan Next Note Type Treatment Note Next Visit Plan Instruct in HEP for independent management of condition (HEP), body mechanics training. Review POC for visits before POC expires. Pelvic and lumbar stabilization. ?Manual stretch to Iliopsoas. Pt education in self care, pain management, posture, and modalities for pain. LE strengthening, transfer training to reduce low back strain, body mechanics training, manual therapy for soft tissue dysfunction. Plan of Care Dates Plan of Care Start Date 04/30/21 Plan of Care End Date 06/25/21 Electronically Signed by: Amalia Hurst, PT 04/30/21 2513 Please Sign and Return: I have reviewed this Plan of Care and certify that the skilled therapy services above are required to meet the patient?s needs. Physician Signature Date Printed Name and Credentials Clinical Instructor Signature Printed Name and Credentials
--- NOTE | 2021-05-07 09:49 | PT.OTN ---
Current Diagnoses Other chronic pain (05/07/21) Lumbago with sciatica, left side (05/07/21) Muscle weakness (generalized) (05/07/21) Physical Therapy Treatment Note PT-OP-A Visit Information Start: 02/27/21 17:21 Freq: Status: Active Protocol: Document 05/07/21 09:04 SP (Rec: 05/07/21 12:10 SP [id number]) Out-Patient Physical Therapy Visit Information Visit Information Visit Type Treatment Note Visit Start Time 09:04 Visit Stop Time 09:49 Total Visit Minutes 45 Visit Number 5 Number of SCREENING REPRESENTATIVE Visits 1 Evaluation Information Evaluation Date 03/02/21 Precautions Precautions Mild neck pain, hx or disc bulge and tear. PT-OP-B Current Condition Start: 02/27/21 17:21 Freq: Status: Active Protocol: Document 03/02/21 09:37 LRN (Rec: 03/02/21 11:16 LRN [id number]) Current Condition History of Current Condition Onset Date 2 yrs ago Current Complaints Intermittent sharp LBP that radiates into mental health therapist legs/ knees, rated 3-4/10 History of Current Condition See Developmental History section. Pt reports she started working out again and is now flared up but feels she needs to work out and it is causing her a little issue. Pt has intermittent low back pain most noticeable with lifting and increased activity . She states she has decreased sensation most of the time in the lateral L thigh, and intermittent sensation loss when at its worst. She has seen a chiro for the past 2 yrs with relief, but for the past year has had 30-40% relief. She has been tapered to once every 2 weeks. She is wanting to try something different for treatment, and because she is also considering having children in the future she wants to figure things out now . Prior Treatments and Tests MRI at initial injury showing L4/L5 Dsic bulge and tearing. 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 Small TNS unit used occasionally for sitting long, flying, or when bad. 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 Pt reports MRI indicated she had a protruding disc (L4-L5) and tearing that caused constant LBP for a year. Pt states it took 1 yr for the back to heal enough that she now has intermittent back pain. 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 Treatment Goals Patient/Caregiver Goals Education in self care to prevent worsening of symptoms and how to care for back. . HEP for self care to improve her activity tolerance. Decrease her pain level to 1-2 /10 and reduction of sharp pain with increased activity. 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 Current Functional Impairments (Reported) Functional Limitations- ADL's Lifting 1 yr old (22-25#). 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 Spouse is . Functional Limitations- Recreation/ Some barre ex and squats/push Hobbies ups 2-3x/week. Personal Factors Other Personal Factors That May Effect Nanny of 1 yr old. Therapy/Recovery Getting in 20 days, so stressed. PT-OP-C Subjective Start: 02/27/21 17:21 Freq: Status: Active Protocol: Document 05/07/21 09:04 SP (Rec: 05/07/21 12:10 SP [id number]) OP-PT Subjective Patient Comments Patient Comments Pt stated trying to lift the child provides nanny services with better body mechanics hip hinge as last tx instructed has made a difference in SI and low back but mid back has been sore lately. Patient Reported Progress Improving PT-OP-H Neuro Start: 02/27/21 17:21 Freq: Status: Active Protocol: Document 03/02/21 09:37 LRN (Rec: 03/02/21 11:16 LRN [id number]) Sensation Evaluation Gross Sensation Gross Sensation Left LE Impaired Comments Summary Comments Decreased sensation L lateral thigh Deep Tendon Reflex & Clonus Assessment Deep Tendon Reflex Bilateral Achilles Deep Tendon Reflex 3+ Normal But Brisk Bilateral Patellar Deep Tendon Reflex 3+ Normal But Brisk PT-OP-J Posture/Palpation/Skin Start: 02/27/21 17:21 Freq: Status: Active Protocol: Document 03/05/21 10:32 LRN (Rec: 03/05/21 12:28 LRN [id number]) Palpation Assessment Location ASIS Palpation Location ASIS Palpation Details Supine: L slightly deep, sligtly superior to R side. PT-OP-K Range of Motion Start: 02/27/21 17:21 Freq: Status: Active Protocol: Document 03/02/21 09:37 LRN (Rec: 03/02/21 11:16 LRN [id number]) Lumbar Spine Range of Motion Lumbar Spine Active Degrees Testing Position Standing Flexion 115 Extension 20 Rotation Left 45 Rotation Right 45 Lateral Flexion Left 20 Lateral Flexion Right 5 ROM Limitations Pain Comments Trunk flex is with 80 deg's hip flex Trunk ext is with 3 deg's hip ext Hip Goniometric Range of Motion Hip Right Passive Testing Position Supine Internal Rotation 20 External Rotation 50 Left Passive Testing Position Supine Internal Rotation 20 External Rotation 60 PT-OP-L Special Tests Start: 02/27/21 17:21 Freq: Status: Active Protocol: Document 03/05/21 10:32 LRN (Rec: 03/05/21 12:28 LRN [id number]) Special Tests Lumbar Spine Special Tests March Test Comments R side moves a little more than L PT-OP-M Strength Start: 02/27/21 17:21 Freq: Status: Active Protocol: Document 03/02/21 09:37 LRN (Rec: 03/02/21 11:16 LRN [id number]) Trunk Strength Trunk Manual Muscle Testing Testing Position Supine Core Stabilization Pt is not able to maintain core stability with MMT of LE' s with trunk rotation noticeable. Hip Strength Hip Manual Muscle Testing Right Flexion (L2) 4+ Good+ Abduction 5 Normal Adduction 5 Normal External Rotation 4 Good Internal Rotation 4 Good Left Flexion (L2) 4+ Good+ Abduction 5 Normal Adduction 5 Normal External Rotation 3 Fair Internal Rotation 4 Good Knee Strength Knee Manual Muscle Testing Right Flexion (S2) 4 Good Extension (L3) 4 Good Left Flexion (S2) 4 Good Extension (L3) 4 Good Ankle/Foot Strength Ankle and Foot Manual Muscle Testing Right Comments Generally 4/5 Left Comments Generally 4/5 PT-OP-Q Treatments Start: 02/27/21 17:21 Freq: Status: Active Protocol: Document 05/07/21 09:04 SP (Rec: 05/07/21 12:10 SP [id number]) Therapeutic Exercises Supine Exercises Bridging Supine Exercise Name TA/Bridge focus on core stability Resistance TB #2 loop Reps/Minutes x5 reps, 5 sec hold x5 Comments occasional cues for neutral LS /pelvis- pain free LE Roll in/out w/deep breathing Supine Exercise Name LE hip Long leg IR/ ER w/deep breathing Resistance Tb #1 loop at MTPs Reps/Minutes 2x10 Comments cuing for neutral pelvis, core and quad fac with hip ER- pain free ant/post Prone Exercises quad thread needle Prone Exercise Name already doing on own- HEP Side bilateral Reps/Minutes x3 Comments good form LE/ UE ext (bird dog) Prone Exercise Name added to HEP- good response Side bilateral Reps/Minutes x5 Comments cued level pelvis, serratus press level TS, LE contact table Sidelying Exercises open book Sidelying Exercise Name added to HEP Side bilateral Reps/Minutes 5 reps w/ breath end range Comments good response Standing Exercises self STMs at wall Standing Exercise Name paraspinals, glut, interscapular Side bilateral Reps/Minutes 5 min total Comments good muscle releases- painfree wall slides Standing Exercise Name doing self, discussed neutral pelvis Comments not performed- check next tx form. Therapeutic Activity Therapeutic Activity 1 Name Avoid bend, lift, twist Reps/Minutes 10 w/ 25# DB Comments Instruction in body mechanics with nannying, practiced lifting 25# (wt child is nanny 's) from floor, waist height, avoiding going into anterior pelvic tilt and cued scap stab retract/depression (chest lift). Discussed how to put 15 month old in car seat, crib , and stroller with best body mechanics possible. PT-OP-T Assessment and Plan Start: 02/27/21 17:21 Freq: Status: Active Protocol: Document 05/07/21 09:04 SP (Rec: 05/07/21 12:10 SP [id number]) Physical Therapy Assessment Goals Three Impairment Decreased activity tolerance Short Term Goal (STG) Decrease pain to 4/10. 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 (04/06/21: Sharp pains have decreased, but pt hasn't returned to prior routine on coming back from wedding). LTG Duration 06/25/21 Two Impairment Pain Short Term Goal (STG) Education in self care (body mechanics, pain management) to prevent worsening of symptoms . STG Duration 03/16/21--PROGRESS MADE [facility] Goal (LTG) Decrease her pain level to 1-2 /10 LTG Duration 06/25/21 One Impairment HEP Short Term Goal (STG) Pt educated in self care pain management techniques to include modalities, positioning, modification of exer and posture. STG Duration 03/30/21 Candy Cooker Helper Goal (LTG) HEP for self care to improve her activity tolerance. LTG Duration 06/25/21- PROGRESS MADE Assessment Summary Assessment Pt responded well to lifting mechanics, cued for chest lift (TS ext awareness slightly) with good demonstration and pain free. 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 Cued for alignment throughout. Pt reponded well to increase resistance to LE hip rotation with cues for TA and quad fac and not over recruit LS and HS . Pt painfree leaving today. Physical Therapy Plan Frequency and Duration Frequency of Treatment 2x/Week Duration of Treatment 8 weeks Plan of Care Start Date 04/30/21 Plan of Care End Date 06/25/21 Therapeutic Interventions Therapeutic Interventions Balance Training,Gait Training ,Home Exercise Program,Joint Mobilizations,Manual Therapy, Neuromuscular Re-education, Patient/Caregiver Education, Self-Care/Home Management,Soft Tissue Mobilization,Taping, Therapeutic Activities, Therapeutic Exercises Modalities Cold Pack/Ice Massage,Electric Stimulation,Hot Packs, Traction- Mechanical, Ultrasound Next Visit Focus/Plan Next Note Type Treatment Note Next Visit Plan Continue progres core strengthening.Bbody mechanics training as needed. Next tx add: standing TA w/ scapular and LE strengthening, maybe use TB. Previous PT POC: Review POC for visits before POC expires. Pelvic and lumbar stabilization. ?Manual stretch to Iliopsoas. Pt education in self care, pain management, posture, and modalities for pain. LE strengthening, transfer training to reduce low back strain, body mechanics training, manual therapy for soft tissue dysfunction.
--- NOTE | 2021-05-11 11:36 | PT.OTN ---
Current Diagnoses Other chronic pain (05/11/21) Lumbago with sciatica, left side (05/11/21) Muscle weakness (generalized) (05/11/21) Physical Therapy Treatment Note PT-OP-A Visit Information Start: 02/27/21 17:21 Freq: Status: Active Protocol: Document 05/11/21 08:15 AMB (Rec: 05/11/21 11:35 AMB [email or web address]) Out-Patient Physical Therapy Visit Information Visit Information Visit Type Treatment Note Visit Start Time 08:15 Visit Stop Time 09:00 Total Visit Minutes 45 Visit Number 6 PT-OP-B Current Condition Start: 02/27/21 17:21 Freq: Status: Active Protocol: Document 03/02/21 09:37 LRN (Rec: 03/02/21 11:16 LRN [id number]) Current Condition History of Current Condition Onset Date 2 yrs ago Current Complaints Intermittent sharp 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 Pt reports she started working out again and is now flared up but feels she needs to work out and it is causing her a little issue. Pt has intermittent low back pain most noticeable with lifting and increased activity . She states she has decreased sensation most of the time in the lateral L thigh, and intermittent sensation loss when at its worst. She has seen a chiro for the past 2 yrs with relief, but for the past year has had 30-40% relief. She has been tapered to once every 2 weeks. She is wanting to try something different for treatment, and because she is also considering having children in the future she wants to figure things out now . Prior Treatments and Tests MRI at initial injury showing L4/L5 Dsic bulge and tearing. [facility] health care law specialist (now 1x every 2 wks) took X- rays showed scoliosis (initial injury ms relaxors that she chose not to take). Small TNS unit used occasionally for sitting long, flying, or when bad. 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 Pt reports MRI indicated she had a protruding disc (L4-L5) and tearing that caused constant LBP for a year. Pt states it took 1 yr for the back to heal enough that she now has intermittent back pain. 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 Treatment Goals Patient/Caregiver Goals Education in self care to prevent worsening of symptoms and how to care for back. . HEP for self care to improve her activity tolerance. Decrease her pain level to 1-2 /10 and reduction of sharp pain with increased activity. 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 Current Functional Impairments (Reported) Functional Limitations- ADL's Lifting 1 yr old (22-25#). 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 Spouse is . Functional Limitations- Recreation/ Some barre ex and squats/push Hobbies ups 2-3x/week. Personal Factors Other Personal Factors That May Effect Nanny of 1 yr old. Therapy/Recovery Getting in 20 days, so stressed. PT-OP-C Subjective Start: 02/27/21 17:21 Freq: Status: Active Protocol: Document 05/11/21 08:15 AMB (Rec: 05/11/21 11:35 AMB [email or web address]) OP-PT Subjective Patient Comments Patient Comments Pt's lateral hips are quite tight today as she has been working out more. She was a bit sore after last treatment but difficult to tell why as it doesn't hurt when she does the movement but later on the next day. PT-OP-H Neuro Start: 02/27/21 17:21 Freq: Status: Active Protocol: Document 03/02/21 09:37 LRN (Rec: 03/02/21 11:16 LRN [id number]) Sensation Evaluation Gross Sensation Gross Sensation Left LE Impaired Comments Summary Comments Decreased sensation L lateral thigh Deep Tendon Reflex & Clonus Assessment Deep Tendon Reflex Bilateral Achilles Deep Tendon Reflex 3+ Normal But Brisk Bilateral Patellar Deep Tendon Reflex 3+ Normal But Brisk PT-OP-J Posture/Palpation/Skin Start: 02/27/21 17:21 Freq: Status: Active Protocol: Document 03/05/21 10:32 LRN (Rec: 03/05/21 12:28 LRN [id number]) Palpation Assessment Location ASIS Palpation Location ASIS Palpation Details Supine: L slightly deep, sligtly superior to R side. PT-OP-K Range of Motion Start: 02/27/21 17:21 Freq: Status: Active Protocol: Document 03/02/21 09:37 LRN (Rec: 03/02/21 11:16 LRN [id number]) Lumbar Spine Range of Motion Lumbar Spine Active Degrees Testing Position Standing Flexion 115 Extension 20 Rotation Left 45 Rotation Right 45 Lateral Flexion Left 20 Lateral Flexion Right 5 ROM Limitations Pain Comments Trunk flex is with 80 deg's hip flex Trunk ext is with 3 deg's hip ext Hip Goniometric Range of Motion Hip Right Passive Testing Position Supine Internal Rotation 20 External Rotation 50 Left Passive Testing Position Supine Internal Rotation 20 External Rotation 60 PT-OP-L Special Tests Start: 02/27/21 17:21 Freq: Status: Active Protocol: Document 03/05/21 10:32 LRN (Rec: 03/05/21 12:28 LRN [id number]) Special Tests Lumbar Spine Special Tests March Test Comments R side moves a little more than L PT-OP-M Strength Start: 02/27/21 17:21 Freq: Status: Active Protocol: Document 03/02/21 09:37 LRN (Rec: 03/02/21 11:16 LRN [id number]) Trunk Strength Trunk Manual Muscle Testing Testing Position Supine Core Stabilization Pt is not able to maintain core stability with MMT of LE' s with trunk rotation noticeable. Hip Strength Hip Manual Muscle Testing Right Flexion (L2) 4+ Good+ Abduction 5 Normal Adduction 5 Normal External Rotation 4 Good Internal Rotation 4 Good Left Flexion (L2) 4+ Good+ Abduction 5 Normal Adduction 5 Normal External Rotation 3 Fair Internal Rotation 4 Good Knee Strength Knee Manual Muscle Testing Right Flexion (S2) 4 Good Extension (L3) 4 Good Left Flexion (S2) 4 Good Extension (L3) 4 Good Ankle/Foot Strength Ankle and Foot Manual Muscle Testing Right Comments Generally 4/5 Left Comments Generally 4/5 PT-OP-Q Treatments Start: 02/27/21 17:21 Freq: Status: Active Protocol: Document 05/11/21 08:15 AMB (Rec: 05/11/21 11:35 AMB [email or web address]) Therapeutic Exercises Supine Exercises 1 Supine Exercise Name table top tap downs Comments with cues for TA facilitation IT band stretch Side bilateral Comments Tightness but no tingling Hip flexor stretch Supine Exercise Name Ash Test stretch Side bilateral Reps/Minutes 6' Prone Exercises quad thread needle Prone Exercise Name already doing on own- HEP Side bilateral Reps/Minutes x3 Comments good form Sidelying Exercises open book Sidelying Exercise Name modified to avoid end range rotation Side bilateral Reps/Minutes 5 reps w/ breath end range Comments good response PT-OP-T Assessment and Plan Start: 02/27/21 17:21 Freq: Status: Active Protocol: Document 05/11/21 08:15 AMB (Rec: 05/11/21 11:35 AMB [email or web address]) Physical Therapy Assessment Goals Three Impairment Decreased activity tolerance Short Term Goal (STG) Decrease pain to 4/10. (04/30/21: Pain rating is 4-5/ 10) STG Duration 4/10 current 04/30 Deputy Coroner Goal (LTG) Reduction of sharp pain with increased activity. (04/06/21: Sharp pains have decreased, but pt hasn't returned to prior routine on coming back from wedding). LTG Duration 06/25/21 Two Impairment Pain Short Term Goal (STG) Education in self care (body mechanics, pain management) to prevent worsening of symptoms . STG Duration 03/16/21--PROGRESS MADE Deputy Coroner Goal (LTG) Decrease her pain level to 1-2 /10 LTG Duration 06/25/21 One Impairment HEP Short Term Goal (STG) Pt educated in self care pain management techniques to include modalities, positioning, modification of exer and posture. STG Duration 03/30/21 Detention Goal (LTG) HEP for self care to improve her activity tolerance. LTG Duration 06/25/21- PROGRESS MADE Assessment Summary Assessment Pt wanted to know about low level ab exercises today. Provided education in appropriate HEP and to be very mindful with exercises tp avoid flares in the future. Physical Therapy Plan Next Visit Focus/Plan Next Note Type Treatment Note Next Visit Plan Add in more upper back and LE strengthening as tolerated. Consider T band
--- NOTE | 2021-06-04 13:10 | PT.OTN ---
Current Diagnoses Other chronic pain (06/04/21) Lumbago with sciatica, left side (06/04/21) Muscle weakness (generalized) (06/04/21) Physical Therapy Treatment Note PT-OP-A Visit Information Start: 02/27/21 17:21 Freq: Status: Active Protocol: Document 06/04/21 10:15 AMB (Rec: 06/04/21 11:05 AMB [id number]) Out-Patient Physical Therapy Visit Information Visit Information Visit Type Treatment Note Visit Note 04/30 Visit Start Time 10:15 Visit Stop Time 11:00 Total Visit Minutes 45 Visit Number 7 PT-OP-B Current Condition Start: 02/27/21 17:21 Freq: Status: Active Protocol: Document 03/02/21 09:37 LRN (Rec: 03/02/21 11:16 LRN [id number]) Current Condition History of Current Condition Onset Date 2 yrs ago Current Complaints 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 Pt reports she started working out again and is now flared up but feels she needs to work out and it is causing her a little issue. Pt has intermittent low back pain most noticeable with lifting and increased activity . She states she has decreased sensation most of the time in the lateral L thigh, and intermittent sensation loss when at its worst. She has seen a chiro for the past 2 yrs with relief, but for the past year has had 30-40% relief. She has been tapered to once every 2 weeks. She is wanting to try something different for treatment, and because she is also considering having children in the future she wants to figure things out now . Prior Treatments and Tests MRI at initial injury showing L4/L5 Dsic bulge and tearing. [facility] progressive care manager (now 1x every 2 wks) took X- rays showed scoliosis (initial injury ms relaxors that she chose not to take). Small TNS unit used occasionally for sitting long, flying, or when bad. 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 Pt reports MRI indicated she had a protruding disc (L4-L5) and tearing that caused constant LBP for a year. Pt states it took 1 yr for the back to heal enough that she now has intermittent back pain. 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 Treatment Goals Patient/Caregiver Goals Education in self care to prevent worsening of symptoms and how to care for back. . HEP for self care to improve her activity tolerance. Decrease her pain level to 1-2 /10 and reduction of sharp pain with increased activity. 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 Current Functional Impairments (Reported) Functional Limitations- ADL's Lifting 1 yr old (22-25#). 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 Spouse is . Functional Limitations- Recreation/ Some barre ex and squats/push Hobbies ups 2-3x/week. Personal Factors Other Personal Factors That May Effect Nanny of 1 yr old. Therapy/Recovery Getting in 20 days, so stressed. PT-OP-C Subjective Start: 02/27/21 17:21 Freq: Status: Active Protocol: Document 06/04/21 10:15 AMB (Rec: 06/04/21 13:10 AMB [email or web address]) OP-PT Subjective Patient Comments Patient Comments Candace returns and is having hip tightness bilaterally after being on a plane ride and driving 2 hours for a friend's bachelorette constitution party. PT-OP-H Neuro Start: 02/27/21 17:21 Freq: Status: Active Protocol: Document 03/02/21 09:37 LRN (Rec: 03/02/21 11:16 LRN [id number]) Sensation Evaluation Gross Sensation Gross Sensation Left LE Impaired Comments Summary Comments Decreased sensation L lateral thigh Deep Tendon Reflex & Clonus Assessment Deep Tendon Reflex Bilateral Achilles Deep Tendon Reflex 3+ Normal But Brisk Bilateral Patellar Deep Tendon Reflex 3+ Normal But Brisk PT-OP-J Posture/Palpation/Skin Start: 02/27/21 17:21 Freq: Status: Active Protocol: Document 03/05/21 10:32 LRN (Rec: 03/05/21 12:28 LRN [id number]) Palpation Assessment Location ASIS Palpation Location ASIS Palpation Details Supine: L slightly deep, sligtly superior to R side. PT-OP-K Range of Motion Start: 02/27/21 17:21 Freq: Status: Active Protocol: Document 03/02/21 09:37 LRN (Rec: 03/02/21 11:16 LRN [id number]) Lumbar Spine Range of Motion Lumbar Spine Active Degrees Testing Position Standing Flexion 115 Extension 20 Rotation Left 45 Rotation Right 45 Lateral Flexion Left 20 Lateral Flexion Right 5 ROM Limitations Pain Comments Trunk flex is with 80 deg's hip flex Trunk ext is with 3 deg's hip ext Hip Goniometric Range of Motion Hip Right Passive Testing Position Supine Internal Rotation 20 External Rotation 50 Left Passive Testing Position Supine Internal Rotation 20 External Rotation 60 PT-OP-L Special Tests Start: 02/27/21 17:21 Freq: Status: Active Protocol: Document 03/05/21 10:32 LRN (Rec: 03/05/21 12:28 LRN [id number]) Special Tests Lumbar Spine Special Tests March Test Comments R side moves a little more than L PT-OP-M Strength Start: 02/27/21 17:21 Freq: Status: Active Protocol: Document 03/02/21 09:37 LRN (Rec: 03/02/21 11:16 LRN [id number]) Trunk Strength Trunk Manual Muscle Testing Testing Position Supine Core Stabilization Pt is not able to maintain core stability with MMT of LE' s with trunk rotation noticeable. Hip Strength Hip Manual Muscle Testing Right Flexion (L2) 4+ Good+ Abduction 5 Normal Adduction 5 Normal External Rotation 4 Good Internal Rotation 4 Good Left Flexion (L2) 4+ Good+ Abduction 5 Normal Adduction 5 Normal External Rotation 3 Fair Internal Rotation 4 Good Knee Strength Knee Manual Muscle Testing Right Flexion (S2) 4 Good Extension (L3) 4 Good Left Flexion (S2) 4 Good Extension (L3) 4 Good Ankle/Foot Strength Ankle and Foot Manual Muscle Testing Right Comments Generally 4/5 Left Comments Generally 4/5 PT-OP-Q Treatments Start: 02/27/21 17:21 Freq: Status: Active Protocol: Document 06/04/21 10:15 AMB (Rec: 06/04/21 13:10 AMB [email or web address]) Therapeutic Exercises Supine Exercises 3 Supine Exercise Name SLR with TA stabilization Comments 10 2 Supine Exercise Name hamstring stretch active Comments with ankle df/pf 1 Supine Exercise Name table top tap downs Comments with cues for TA facilitation Bridging Supine Exercise Name TA/Bridge focus on core stability Resistance TB #2 loop Reps/Minutes x5 reps, 5 sec hold x5 Comments occasional cues for neutral LS /pelvis- pain free BKTC stretch Supine Exercise Name KTC stretch Side bilateral Reps/Minutes 6' Comments Extra time for teaching seating of femoral head in socket prior to KTC Prone Exercises LE/ UE ext (bird dog) Prone Exercise Name added to HEP- good response Side bilateral Reps/Minutes x5 Comments cued level pelvis, serratus press level TS, LE contact table Sidelying Exercises 1 Sidelying Exercise Name clamshell with and without band Reps/Minutes 10 Comments challenging with band on the R PT-OP-T Assessment and Plan Start: 02/27/21 17:21 Freq: Status: Active Protocol: Document 06/04/21 10:15 AMB (Rec: 06/04/21 13:10 AMB [email or web address]) Physical Therapy Assessment Goals Three Impairment Decreased activity tolerance Short Term Goal (STG) Decrease pain to 4/10. (04/30/21: Pain rating is 4-5/ 10) STG Duration 4/10 current 04/30 Education Adviser Goal (LTG) Reduction of sharp pain with increased activity. (04/06/21: Sharp pains have decreased, but pt hasn't returned to prior routine on coming back from wedding). LTG Duration 06/25/21 Two Impairment Pain Short Term Goal (STG) Education in self care (body mechanics, pain management) to prevent worsening of symptoms . STG Duration 03/16/21--PROGRESS MADE Custodial Goal (LTG) Decrease her pain level to 1-2 /10 LTG Duration 06/25/21 One Impairment HEP Short Term Goal (STG) Pt educated in self care pain management techniques to include modalities, positioning, modification of exer and posture. STG Duration 03/30/21 Education Adviser Goal (LTG) HEP for self care to improve her activity tolerance. LTG Duration 06/25/21- PROGRESS MADE Assessment Summary Assessment Pt given HEP of bird dog ( modified toes on ground), active hamstring stretch, clamshell (with then without t band) bridging with theraband , and SLR with TA, and given options to progress over the next month. Physical Therapy Plan Frequency and Duration Frequency of Treatment 2x/Week Duration of Treatment 8 weeks Plan of Care Start Date 04/30/21 Plan of Care End Date 06/25/21 Next Visit Focus/Plan Next Note Type Treatment Note Next Visit Plan Add in more upper back and LE strengthening as tolerated. See how pt is tolerating gentle progressive HEP.
--- NOTE | 2021-08-23 15:52 | PT.OPDS ---
Current Diagnoses Other chronic pain (06/04/21) Lumbago with sciatica, left side (06/04/21) Muscle weakness (generalized) (06/04/21) Visit Care Team Role Provider Type Henrry Carlson MD Attending Provider Physician Family Provider Primary Care Provider Referring Provider Specialty: Family Practice Address: [address] [place] [address], [facility] Email: [email or web address] Visit Number Visit Number 7 Discharge Summary PT-OP-B Current Condition Start: 02/27/21 17:21 Freq: Status: Active Protocol: Document 03/02/21 09:37 LRN (Rec: 03/02/21 11:16 LRN [id number]) Current Condition History of Current Condition Onset Date 2 yrs ago Current Complaints Intermittent sharp LBP that radiates into pole setter legs/ knees, rated 3-4/10 History of Current Condition See Developmental History section. Pt reports she started working out again and is now flared up but feels she needs to work out and it is causing her a little issue. Pt has intermittent low back pain most noticeable with lifting and increased activity . She states she has decreased sensation most of the time in the lateral L thigh, and intermittent sensation loss when at its worst. She has seen a chiro for the past 2 yrs with relief, but for the past year has had 30-40% relief. She has been tapered to once every 2 weeks. She is wanting to try something different for treatment, and because she is also considering having children in the future she wants to figure things out now . Prior Treatments and Tests MRI at initial injury showing L4/L5 Dsic bulge and tearing. 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 Small TNS unit used occasionally for sitting long, flying, or when bad. 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 Pt reports MRI indicated she had a protruding disc (L4-L5) and tearing that caused constant LBP for a year. Pt states it took 1 yr for the back to heal enough that she now has intermittent back pain. 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 Treatment Goals Patient/Caregiver Goals Education in self care to prevent worsening of symptoms and how to care for back. . HEP for self care to improve her activity tolerance. Decrease her pain level to 1-2 /10 and reduction of sharp pain with increased activity. 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 Current Functional Impairments (Reported) Functional Limitations- ADL's Lifting 1 yr old (22-25#). 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 Spouse is . Functional Limitations- Recreation/ Some barre ex and squats/push Hobbies ups 2-3x/week. Personal Factors Other Personal Factors That May Effect Nanny of 1 yr old. Therapy/Recovery Getting in 20 days, so stressed. PT-OP-C Subjective Start: 02/27/21 17:21 Freq: Status: Active Protocol: Document 06/04/21 10:15 AMB (Rec: 06/04/21 13:10 AMB [id number]) OP-PT Subjective Patient Comments Patient Comments Candace returns and is having hip tightness bilaterally after being on a plane ride and driving 2 hours for a friend's bachelorette alliance party. PT-OP-H Neuro Start: 02/27/21 17:21 Freq: Status: Active Protocol: Document 03/02/21 09:37 LRN (Rec: 03/02/21 11:16 LRN [id number]) Sensation Evaluation Gross Sensation Gross Sensation Left LE Impaired Comments Summary Comments Decreased sensation L lateral thigh Deep Tendon Reflex & Clonus Assessment Deep Tendon Reflex Bilateral Achilles Deep Tendon Reflex 3+ Normal But Brisk Bilateral Patellar Deep Tendon Reflex 3+ Normal But Brisk PT-OP-J Posture/Palpation/Skin Start: 02/27/21 17:21 Freq: Status: Active Protocol: Document 03/05/21 10:32 LRN (Rec: 03/05/21 12:28 LRN [id number]) Palpation Assessment Location ASIS Palpation Location ASIS Palpation Details Supine: L slightly deep, sligtly superior to R side. PT-OP-K Range of Motion Start: 02/27/21 17:21 Freq: Status: Active Protocol: Document 03/02/21 09:37 LRN (Rec: 03/02/21 11:16 LRN [id number]) Lumbar Spine Range of Motion Lumbar Spine Active Degrees Testing Position Standing Flexion 115 Extension 20 Rotation Left 45 Rotation Right 45 Lateral Flexion Left 20 Lateral Flexion Right 5 ROM Limitations Pain Comments Trunk flex is with 80 deg's hip flex Trunk ext is with 3 deg's hip ext Hip Goniometric Range of Motion Hip Right Passive Testing Position Supine Internal Rotation 20 External Rotation 50 Left Passive Testing Position Supine Internal Rotation 20 External Rotation 60 PT-OP-L Special Tests Start: 02/27/21 17:21 Freq: Status: Active Protocol: Document 03/05/21 10:32 LRN (Rec: 03/05/21 12:28 LRN [id number]) Special Tests Lumbar Spine Special Tests March Test Comments R side moves a little more than L PT-OP-M Strength Start: 02/27/21 17:21 Freq: Status: Active Protocol: Document 03/02/21 09:37 LRN (Rec: 03/02/21 11:16 LRN [id number]) Trunk Strength Trunk Manual Muscle Testing Testing Position Supine Core Stabilization Pt is not able to maintain core stability with MMT of LE' s with trunk rotation noticeable. Hip Strength Hip Manual Muscle Testing Right Flexion (L2) 4+ Good+ Abduction 5 Normal Adduction 5 Normal External Rotation 4 Good Internal Rotation 4 Good Left Flexion (L2) 4+ Good+ Abduction 5 Normal Adduction 5 Normal External Rotation 3 Fair Internal Rotation 4 Good Knee Strength Knee Manual Muscle Testing Right Flexion (S2) 4 Good Extension (L3) 4 Good Left Flexion (S2) 4 Good Extension (L3) 4 Good Ankle/Foot Strength Ankle and Foot Manual Muscle Testing Right Comments Generally 4/5 Left Comments Generally 4/5 PT-OP-T Assessment and Plan Start: 02/27/21 17:21 Freq: Status: Active Protocol: Document 08/23/21 15:49 AMB (Rec: 08/23/21 15:51 AMB [id number]) Physical Therapy Assessment Goals Three Impairment Decreased activity tolerance Short Term Goal (STG) Decrease pain to 4/10. (04/30/21: Pain rating is 4-5/ 10) STG Duration 410 current 04/30 Fpc Goal (LTG) Reduction of sharp pain with increased activity. (04/06/21: Sharp pains have decreased, but pt hasn't returned to prior routine on coming back from wedding). LTG Duration 06/25/21 Two Impairment Pain Short Term Goal (STG) Education in self care (body mechanics, pain management) to prevent worsening of symptoms . STG Duration 03/16/21--PROGRESS MADE Construction Management Assistant Goal (LTG) Decrease her pain level to 1-2 /10 LTG Duration 06/25/21 One Impairment HEP Short Term Goal (STG) Pt educated in self care pain management techniques to include modalities, positioning, modification of exer and posture. STG Duration 03/30/21 Construction Management Assistant Goal (LTG) HEP for self care to improve her activity tolerance. LTG Duration 06/25/21- PROGRESS MADE Assessment Summary Assessment Pt called to cancel her last appointment and has not been seen in almost 3 months now. See progress note for most recent progress. Physical Therapy Plan Discharge Physical Therapy Discharge Reasons Patient Request
== END 2021-08-27 11:58 ==
LOC: PHYS 10:15
PROVIDERS: Family Provider Family Medicine; PCP Family Medicine; Referring Provider Family Medicine; Visit Provider Family Medicine
DX: M54.42 Lumbago with sciatica, left side (principal); G89.29 Other chronic pain; M62.81 Muscle weakness (generalized)
CPT/HCPCS: 97110; 97140; 97162; 97530; 97535

== ENCOUNTER → 2021-06-29 17:00 | Outpatient (CLI) | payer OTHER, SELFPAY ==
[2021-06-29 17:21] LABS: COVID19 -Nasal RAPID Negative (Negative)
== END ==
PROVIDERS: Family Provider Family Medicine; PCP Family Medicine; Referring Provider Nurse Practitioner; Visit Provider Nurse Practitioner
DX: Z20.822 Contact with and (suspected) exposure to COVID-19 (principal)
CPT/HCPCS: 87635

== ENCOUNTER 2021-10-03 17:22 | Emergency (ER) | payer OTHER, SELFPAY ==
[2021-10-03 17:26] VITALS: BP 138/66; PULSE 76; RESP 22; TEMP 37.1; O2SAT 100; BMI 21.4
--- NOTE | 2021-10-03 17:31 | PC.NURSE ---
Pt states that she has had a lot of changes in the past two years, moved from [place], in . Recently had loss of job, and finding out that there was talk behind her back at her workplace. Reports thoughts of self harm, with no specific plan, and no prior attempts. States I would never do that though. Feels safe here at the hospital, but is seeking help for her increased anxiety. She can normally calm herself and handle things without being seen, but has recently started therapy and is interested in meds that can also help her. Set to go home to see family in two days.
[2021-10-03 19:04] VITALS: BP 128/60; PULSE 61; O2SAT 100
--- NOTE | 2021-10-03 19:34 | ED.ANXIETY ---
HPI - Anxiety General Chief Complaint: Anxiety Stated Complaint: severe anxiety Time Seen by Provider: 10/03/21 19:09 Source: patient Mode of arrival: Ambulatory History of Present Illness HPI narrative: Patient is a 26-year-old female who suffers from anxiety. She has been in therapy for a long time she has numerous stressors in her life. 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 However there has been some drama and altercations at the office she is working she decided to step back from that position. However there was a stressor yesterday she feels like she is getting more and more triggered. She has an appointment in October with Dr. Monge to start her on anti anxiety medication however she feels like she might not make it. This because been stressful. She has a very supportive at home, she has good family support but they are not currently in state. She is leaving to visit them for 2 weeks over the holiday. Related Data Home Medications Medication Instructions Recorded Confirmed levonorgestrel 20.1 mcg/24 hrs (6 INTRAUTERINE 04/06/21 04/06/21 yrs) 52 mg intrauterine device (Liletta) Previous Rx's Medication Instructions Recorded lorazepam 0.5 mg tablet (Ativan) 0.5 mg PO Q6H PRN #2 tab 10/03/21 Allergies Allergy/AdvReac Type Severity Reaction Status Date / Time amoxicillin AdvReac Severe Yeast Verified 06/29/21 17:06 infection ceftriaxone [From Rocephin] AdvReac Unknown Almost Verified 06/29/21 17:06 passed out, temp spiked Review of Systems Review of Systems Narrative: GENERAL: Denies chills,fever HEENT: Denies throat pain RESPIRATORY: Denies dyspnea, cough, wheezing CARDIOVASCULAR: Denies chest pain, palpitations GASTROINTESTINAL: Denies nausea, vomiting MUSCULOSKELETAL: Denies extremity pain, injury SKIN: No rash, no laceration, no pruritus NEUROLOGIC: Denies weakness, dizziness, headache, numbness 8 point review of systems is negative except for those stated above and HPI Psychiatric Psychiatric: Reports as per HPI and Reports anxiety Patient History Medical History (Updated 10/03/21 @ 19:50 by Iris Loza DO) Chronic back pain Depression Narcolepsy No significant medical problems Social History Smoking Status: Never smoker Smoking Status: Never smoker alcohol intake frequency: a few times a month Substance Use Type: does not use Exam Initial Vital Signs Initial Vital Signs: Vital Signs Temperature 98.7 F 10/03/21 17:26 Pulse Rate 76 10/03/21 17:26 Respiratory Rate 22 10/03/21 17:26 Blood Pressure 138/66 10/03/21 17:26 Pulse Oximetry 100 10/03/21 17:26 GENERAL: Tearful 26-year-old female CARDIOVASCULAR: peripheral pulses in tact, cap refill <2 sec RESPIRATORY: No respiratory distress, speaks in full sentences without difficulty [ABDOMEN: Soft, nontender, no guarding or rebound] EXTREMITIES: Normal range of motion, no clubbing or edema. Neurovascularly intact NEUROLOGICAL: Cranial nerves II through XII grossly intact. Normal gait and speech. SKIN: Warm, dry, no petechiae, no rashes or lesions. Course Orders Ordered: ED Orders 10/03/21 18:05 Consult to COMMUNITY OUTREACH ADVOCATE - Automatic Bandsaw Tender Stat Discontinued Medications Lorazepam (Lorazepam 0.5 Mg Tablet) 0.5 mg PO NOW ONE Stop: 10/03/21 19:55 Last Admin: 10/03/21 19:58 Dose: 0.5 mg Documented by: SONYA Vital Signs Vital signs: Vital Signs - 8 hr 10/03/21 19:04 Pulse Rate 61 Blood Pressure 128/60 Pulse Oximetry 100 MDM - Anxiety MDM Narrative Medical decision making narrative: At this time does not meet involuntary criteria. Discussed options. At this time would like Ativan but does not have a ride home. I have agreed to write her for 1-2 tablets for emergency use only. She has good outpatient support she has all outpatient therapy set up but needs to wait until October for psychiatry appointment. Discharge Plan Departure Patient Disposition: Home Clinical Impression: Panic attack Instructions: Anxiety Disorders Activity Restrictions/Additional Instructions: *You have been diagnosed with anxiety *What to do: Your doing a great job managing her anxiety. Other things to try maybe meditation or yoga or even acupuncture. I am by do have an appointment in October with Dr. Monge. *Continue to take medications as directed Ativan 0.5 mg take every 6 hours if needed for anxiety--> SENT TO [facility] [place] *Follow up with your primary care provider in 2-3 days *Return to ER if you should have increasing anxiety, panic, pain or any new, worsening or concerning symptoms CONTROLLED SUBSTANCE DISCHARGE (Narcotoic/benzodiazepine/Flexeril/Phenergan) 1. You have been prescribed narcotic medications, it does have acetaminophen/Tylenol/paracetamol in it, DO NOT TAKE MORE THAN 4,00mg in 24 hours of Tylenol. TRAMADOL DOES NOT CONTAIN TYLENOL 2. Please understand that we cannot provide further refills of narcotics, benzodiazepines or controlled substances through the ED and her pain management will need to be through your provider. 3. While on these medications you cannot drive or operate heavy machinery. 4. You cannot sign legal documents or perform any duties such as this. 5. As long as you're taking opiate pain medications he should also be taking a stool softener such as Colace, Dulcolax, MiraLAX or prune juice, to help avoid constipation. Prescriptions: New lorazepam [Ativan] 0.5 mg tablet 0.5 mg PO Q6H PRN (Reason: anxiety) Qty: 2 0RF No Action Liletta 20.1 mcg/24 hrs (6 yrs) 52 mg intrauterine device intrauterine 0RF Referrals: Henrry Carlson MD [Primary Care Provider] -
[2021-10-03] MEDS: LORazepam 0.5 MG TABLET PO (19:58)
== END 2021-10-03 20:10 | disposition home or self-care (01) ==
PROVIDERS: Emergency Provider Emergency Medicine; Family Provider Family Medicine; PCP Family Medicine
DX: F41.0 Panic disorder [episodic paroxysmal anxiety] (principal)
CPT/HCPCS: 99283

== ENCOUNTER → 2022-01-03 09:18 | Outpatient (CLI) | payer OTHER, SELFPAY ==
[2022-01-03 10:06] LABS: Add Manual Diff / Slide Review NO; Basophils Absolute Auto 0 /uL (0-100); Basophils Percent Auto 0.4 % (0-2); Eosinophils Absolute Auto 100 /uL (0-450); Eosinophils Percent Auto 2.5 % (2-4); Hematocrit 40.4 % (36-46); Hemoglobin 13.5 g/dL (12.0-16.0); Lymphocytes Absolute Auto 1100 /uL (1100-4500); Lymphocytes Percent Auto 33.2 % (25-40); Mean Corpuscular HGB Conc 33.3 % (30-36); Mean Corpuscular Hemoglobin 29.9 PG (26-34); Mean Corpuscular Volume 89.9 fL (80-100); Monocytes Absolute Auto 300 /uL (0-900); Monocytes Percent Auto 8.2 % (3-14); Neutrophils Absolute Auto 1800 /uL (1500-7000); Neutrophils Percent Auto 55.7 % (50-75); Platelet Count 219 X10^3/uL (150-400); Red Cell Distribution Width 13.6 % (11.6-14.8); White Blood Cell Count 3.2 X10^3/uL (4.5-11.0)
[2022-01-03 10:33] LABS: Alanine Aminotransferase 15 IU/L (<35); Albumin 4.9 g/dL (3.5-5.0); Albumin Globulin Ratio 1.8 (1.0-2.8); Alkaline Phosphatase 39 U/L (38-126); Aspartate Aminotransferase 24 IU/L (14-36); BUN Creatinine Ratio 13.8 (6-22); Bilirubin Total 0.9 mg/dL (0.2-1.3); Blood Urea Nitrogen 12 mg/dL (7-17); Calcium 9.5 mg/dL (8.4-10.2); Carbon Dioxide 30 mmol/L (22-32); Chloride 104 mmol/L (98-107); Estimated Glomerular Filt Rate > 60.0 mL/min (>60); Globulin 2.8 g/dL (1.7-4.1); Glucose 92 mg/dL (70-100); HEMOLYSIS < 15 (0-50); Potassium 5.2 mmol/L (3.4-5.1); Sodium 141 mmol/L (137-145); Total Protein 7.7 g/dL (6.3-8.2)
[2022-01-03 10:52] LABS: Vitamin D 25 Hydroxy (D3) 32.6 ng/mL (30.0-100.0)
[2022-01-03 11:03] LABS: TSH w/ Reflex to FT4 1.33 uIU/mL (0.47-4.68)
== END ==
PROVIDERS: Family Provider Family Medicine; PCP Family Medicine; Referring Provider Family Medicine; Visit Provider Family Medicine
DX: E55.9 Vitamin D deficiency, unspecified (principal); F32.9 Major depressive disorder, single episode, unspecified; F41.0 Panic disorder [episodic paroxysmal anxiety]
CPT/HCPCS: 36415; 80053; 82306; 84443; 85025

== ENCOUNTER 2022-01-14 12:40 | Emergency (ER) | payer OTHER, SELFPAY ==
[2022-01-14 12:46] VITALS: BP 114/69; PULSE 117; RESP 16; TEMP 37.3; O2SAT 98; BMI 22.1
[2022-01-14 13:20] LABS: Add Manual Diff / Slide Review NO; Basophils Absolute Auto 0 /uL (0-100); Basophils Percent Auto 0.1 % (0-2); Eosinophils Absolute Auto 0 /uL (0-450); Eosinophils Percent Auto 0.5 % (2-4); Hematocrit 44.8 % (36-46); Lymphocytes Absolute Auto 200 /uL (1100-4500); Lymphocytes Percent Auto 4.4 % (25-40); Mean Corpuscular HGB Conc 33.5 % (30-36); Mean Corpuscular Hemoglobin 30.1 PG (26-34); Mean Corpuscular Volume 89.8 fL (80-100); Monocytes Absolute Auto 300 /uL (0-900); Monocytes Percent Auto 5.7 % (3-14); Neutrophils Absolute Auto 5000 /uL (1500-7000); Neutrophils Percent Auto 89.3 % (50-75); Platelet Count 196 X10^3/uL (150-400); Red Blood Cell Count 4.99 X10^6/uL (4.0-5.2); Red Cell Distribution Width 13.7 % (11.6-14.8); White Blood Cell Count 5.6 X10^3/uL (4.5-11.0)
[2022-01-14 13:26] LABS: Alanine Aminotransferase 17 IU/L (<35); Albumin 5.3 g/dL (3.5-5.0); Albumin Globulin Ratio 1.7 (1.0-2.8); Alkaline Phosphatase 60 U/L (38-126); Aspartate Aminotransferase 37 IU/L (14-36); BUN Creatinine Ratio 20.5 (6-22); Bilirubin Total 1.9 mg/dL (0.2-1.3); Blood Urea Nitrogen 15 mg/dL (7-17); Calcium 9.2 mg/dL (8.4-10.2); Carbon Dioxide 23 mmol/L (22-32); Chloride 104 mmol/L (98-107); Estimated Glomerular Filt Rate > 60.0 mL/min (>60); Globulin 3.2 g/dL (1.7-4.1); Glucose 123 mg/dL (70-100); Lipase 45 U/L (23-300); Potassium 4.1 mmol/L (3.4-5.1); Sodium 137 mmol/L (137-145); Total Protein 8.5 g/dL (6.3-8.2)
[2022-01-14] MEDS: ONDANSETRON 4 MG/2 ML INJ IV (13:26)
[2022-01-14 13:41] LABS: HEMOLYSIS 93 (0-50)
[2022-01-14] MEDS: SODIUM CHLORIDE 0.9% 1,000 ML 1000 ML IV (13:45)
--- NOTE | 2022-01-14 13:45 | ED_ITS ---
HPI - General Adult General Chief complaint: Abdominal Pain Stated complaint: N/V/D 11mo, worse past couple days Time Seen by Provider: 01/14/22 13:33 Source: patient Mode of arrival: Family Vehicle History of Present Illness HPI narrative: 26-year-old female who is here for evaluation of 24 hours of nausea vomiting and diarrhea. One week ago she did have her IUD removed and she is having some cramping related to this. Also at the end of last week she had a colonic done on 2 separate occasions. She had bloating afterwards and diarrhea. She denies any fevers. Has not have any nausea medications at home. No vaginal bleeding. No urinary symptoms. Is having some lower back pain and body aches as well. Related Data Previous Rx's Medication Instructions Recorded fluoxetine 10 mg capsule (Prozac) 10 mg PO DAILY #60 cap 12/10/21 ondansetron 4 mg disintegrating 4 mg PO Q6H PRN #7 tab 01/14/22 tablet Allergies Allergy/AdvReac Type Severity Reaction Status Date / Time amoxicillin AdvReac Severe Yeast Verified 01/14/22 12:53 infection ceftriaxone [From Rocephin] AdvReac Unknown Almost Verified 01/14/22 12:53 passed out, temp spiked Review of Systems Constitutional Constitutional: Denies fever(s) Cardiovascular Cardiovascular: Denies chest pain and Denies dyspnea Respiratory Respiratory: Denies dyspnea Gastrointestinal Gastrointestinal: Reports as per HPI and Reports system reviewed and no additional complaints, except as documented Genitourinary Genitourinary: Reports system reviewed and no additional complaints, except as documented Musculoskeletal Musculoskeletal: Reports system reviewed and no additional complaints, except as documented Integumentary/Breasts Skin/Breast: Reports system reviewed and no additional complaints, except as documented Neurologic Neurologic: Reports system reviewed and no additional complaints, except as documented Hematologic/Lymphatic On Anticoagulants: No Patient History Medical History Chronic back pain Depression Narcolepsy No significant medical problems Vitamin D deficiency Social History Smoking Status: Never smoker Smoking Status: Never smoker alcohol intake frequency: a few times a month Substance Use Type: does not use Exam Initial Vital Signs Initial Vital Signs: Vital Signs Temperature 99.1 F 01/14/22 12:46 Pulse Rate 117 H 01/14/22 12:46 Respiratory Rate 16 01/14/22 12:46 Blood Pressure 114/69 01/14/22 12:46 Pulse Oximetry 98 01/14/22 12:46 HENPA Head: normal to inspection and normocephalic Resp Effort & Inspection: normal respiratory effort Auscultation: clear to auscultation bilaterally Cardio Rate: regular rate Rhythm: regular rhythm GI Inspection: normal to inspection Palpation: soft, No firm, No guarding and No tender Skin General: no rashes or lesions noted Neuro General: patient alert, patient awake, patient oriented x3 and moves all extremities Extrem General: normal to inspection and capillary refill normal Psych Appearance: grossly normal and well kempt Course Orders Ordered: ED Orders 01/14/22 13:04 Complete Blood Count AUTO DIFF Stat Comprehensive Metabolic Panel Stat Lipase Stat 01/14/22 13:47 Ictotest Urine Stat Discontinued Medications Sodium Chloride (Normal Saline 0.9%) 1,000 mls @ 1,000 mls/hr IV BOLUS ONE Stop: 01/14/22 14:31 Last Infusion: 01/14/22 14:43 Dose: 0 mls/hr Documented by: Admin: 01/14/22 13:45 Dose: 1,000 mls/hr Documented by: NICK Metoclopramide HCl (Metoclopramide 10 Mg/2 Ml Inj) 10 mg IV NOW ONE Stop: 01/14/22 14:49 Last Admin: 01/14/22 15:08 Dose: 10 mg Documented by: GAMALIEL Ondansetron HCl (Ondansetron 4 Mg/2 Ml Inj) 4 mg IV NOW ONE Stop: 01/14/22 13:15 Last Admin: 01/14/22 13:26 Dose: 4 mg Documented by: CLARE Vital Signs Vital signs: Vital Signs - 8 hr 01/14/22 12:46 01/14/22 15:13 Temperature 99.1 F Pulse Rate 117 H 84 Respiratory Rate 16 20 Blood Pressure 114/69 106/55 L Pulse Oximetry 98 99 Medical Decision Making Lab Data Lab results reviewed: Yes I reviewed the patient's lab results. Result diagrams: 01/14/22 13:04 01/14/22 13:04 Labs: Lab Results 03/28/22 03/28/22 03/28/22 Range/Units 13:04 13:04 13:47 WBC 5.6 (4.5-11.0) X10^3/uL RBC 4.99 (4.0-5.2) X10^6/uL Hgb 15.0 (12.0-16.0) g/dL Hct 44.8 (36-46) % MCV 89.8 (80-100) fL MCH 30.1 (26-34) PG MCHC 33.5 (30-36) % RDW 13.7 (11.6-14.8) % Plt Count 196 (150-400) X10^3/uL Neut % (Auto) 89.3 H (50-75) % Lymph % (Auto) 4.4 L (25-40) % Whitman % (Auto) 5.7 (3-14) % Eos % (Auto) 0.5 L (2-4) % Baso % (Auto) 0.1 (0-2) % Neut # (Auto) 5000 (2235-1097) /uL Lymph # (Auto) 200 L (1813-8747) /uL Whitman # (Auto) 300 (0-900) /uL Eos # (Auto) 0 (0-450) /uL Baso # (Auto) 0 (0-100) /uL Sodium 137 (137-145) mmol/L Potassium 4.1 (3.4-5.1) mmol/L Chloride 104 (98-107) mmol/L Carbon Dioxide 23 (22-32) mmol/L BUN 15 (7-17) mg/dL Creatinine 0.73 (0.52-1.04) mg/dL Estimated GFR > 60.0 (>60) mL/min BUN/Creatinine Ratio 20.5 (6-22) Glucose 123 H (70-100) mg/dL Calcium 9.2 (8.4-10.2) mg/dL Total Bilirubin 1.9 H (0.2-1.3) mg/dL AST 37 H (14-36) IU/L ALT 17 (<35) IU/L Alkaline Phosphatase 60 (38-126) U/L Total Protein 8.5 H (6.3-8.2) g/dL Albumin 5.3 H (3.5-5.0) g/dL Globulin 3.2 (1.7-4.1) g/dL Albumin/Globulin Ratio 1.7 (1.0-2.8) Lipase 45 (23-300) U/L Ur Bilirubin Confirm Negative (Negative) Point of Care Testing Test Results Negative Urine Dip Bedside Urine Glucose Negative Bedside Urine Bilirubin + 1 Bedside Urine Ketone +/- 5 Urine Specific [place] 1.025 Bedside Urine Occult Blood - Negative Bedside Urine pH 6.0 Bedside Urine Protein - Negative Bedside Urine Urobilinogen - Negative Bedside Urine Nitrite - Negative Bedside Urine Leukocytes - Negative Esterase Point of care testing: Point of Care Testing Test Results Negative Urine Dip Bedside Urine Glucose Negative Bedside Urine Bilirubin + 1 Bedside Urine Ketone +/- 5 Urine Specific [place] 1.025 Bedside Urine Occult Blood - Negative Bedside Urine pH 6.0 Bedside Urine Protein - Negative Bedside Urine Urobilinogen - Negative Bedside Urine Nitrite - Negative Bedside Urine Leukocytes - Negative Esterase MDM Narrative Medical decision making narrative: Patient does have a benign abdominal exam. Vital signs are unremarkable. Labs unremarkable. Not surprised that she is having diarrhea given the fact that she just had a colonic 2 days ago. I do not feel indication for obtaining radiologic studies based on her presentation today. She was able to tolerate oral intake after medications. We will hold on further workup for now. Patient could be safely discharged home and was given strict return precautions. She expressed understanding and agreement. Discharge Plan Departure Patient Disposition: Home Clinical Impression: Abdominal cramping, Nausea Instructions: DI for Abdominal Pain-Adult, DI for Nausea -- Adult Activity Restrictions/Additional Instructions: I would not be surprised if you continue to have diarrhea over the next 24-48 hours. I do not recommend that you take any anti diarrheal medicines. Use the nausea medicine is needed. Be sure to increase your fluid intake. Return to the emergency department for any new or worsening symptoms. Prescriptions: New ondansetron 4 mg tablet,disintegrating 4 mg PO Q6H PRN (Reason: nausea and vomiting) Qty: 7 0RF No Action fluoxetine [Prozac] 10 mg capsule 10 mg PO DAILY Qty: 60 0RF Referrals: Henrry Carlson MD [Primary Care Provider] -
[2022-01-14 14:00] LABS: Ictotest Urine Negative (Negative)
[2022-01-14] MEDS: METOCLOPRAMIDE 10 MG/2 ML INJ IV (15:08)
[2022-01-14 15:13] VITALS: BP 106/55; PULSE 84; RESP 20; O2SAT 99
--- NOTE | 2022-01-14 16:06 | PC.NURSE ---
Pt provided ice chips and water with instructions to consume slowly, pt tolerated, Dr Youssef aware.
[2022-01-14 16:10] VITALS: BP 121/60; PULSE 81; RESP 20; O2SAT 99
== END 2022-01-14 16:12 | disposition home or self-care (01) ==
PROVIDERS: Emergency Provider Emergency Medicine; Family Provider Family Medicine; PCP Family Medicine
DX: R10.9 Unspecified abdominal pain (principal); R11.2 Nausea with vomiting, unspecified; R19.7 Diarrhea, unspecified
CPT/HCPCS: 36415; 80053; 81003; 81025; 83690; 85025; 96374; 96375; 99284; J2405; J2765

== ENCOUNTER → 2022-05-07 17:32 | Outpatient (CLI) | payer OTHER, SELFPAY ==
[2022-05-07 18:50] LABS: Add Manual Diff / Slide Review NO; Basophils Absolute Auto 0 /uL (0-100); Basophils Percent Auto 0.2 % (0-2); Eosinophils Absolute Auto 100 /uL (0-450); Eosinophils Percent Auto 1.2 % (2-4); Hematocrit 34.9 % (36-46); Lymphocytes Absolute Auto 1300 /uL (1100-4500); Lymphocytes Percent Auto 18.8 % (25-40); Mean Corpuscular HGB Conc 34.4 % (30-36); Mean Corpuscular Hemoglobin 30.1 PG (26-34); Mean Corpuscular Volume 87.5 fL (80-100); Monocytes Absolute Auto 500 /uL (0-900); Monocytes Percent Auto 7.1 % (3-14); Neutrophils Absolute Auto 5100 /uL (1500-7000); Neutrophils Percent Auto 72.7 % (50-75); Platelet Count 196 X10^3/uL (150-400); Red Blood Cell Count 3.98 X10^6/uL (4.0-5.2); Red Cell Distribution Width 12.8 % (11.6-14.8)
[2022-05-07 18:56] LABS: Alanine Aminotransferase 11 IU/L (<35); Albumin 4.2 g/dL (3.5-5.0); Albumin Globulin Ratio 1.8 (1.0-2.8); Alkaline Phosphatase 31 U/L (38-126); Aspartate Aminotransferase 19 IU/L (14-36); Bilirubin Total 0.4 mg/dL (0.2-1.3); Blood Urea Nitrogen 9 mg/dL (7-17); Carbon Dioxide 23 mmol/L (22-32); Chloride 105 mmol/L (98-107); Estimated Glomerular Filt Rate > 60 mL/min (>60); Globulin 2.3 g/dL (1.7-4.1); Glucose 97 mg/dL (70-100); HEMOLYSIS < 15 (0-50); Potassium 4.2 mmol/L (3.4-5.1); Sodium 137 mmol/L (137-145); Total Protein 6.5 g/dL (6.3-8.2)
[2022-05-07 19:23] LABS: Appearance Urine UA CLEAR; Bilirubin Urine UA NEGATIVE (NEGATIVE); Color Urine UA YELLOW; Glucose Urine UA NEGATIVE (Negative); Ketones Urine UA NEGATIVE (NEGATIVE); Leukocyte Esterase Urine UA TRACE (NEGATIVE); Nitrite Urine UA NEGATIVE (Negative); Occult Blood Urine UA NEGATIVE (Negative); Protein Urine UA NEGATIVE (Negative); Specific Gravity Urine UA 1.015 (1.000-1.035); Urobilinogen Urine UA 0.2 E.U./dL (0.2)
[2022-05-07 19:30] LABS: Hepatitis B Surface Antigen NEGATIVE s/c (NEGATIVE); Rubella Antibody IgG 14.9 IU/mL (>15)
[2022-05-07 19:51] LABS: HIV 1 & 2 Ab/Ag 4th Gen Combo NEGATIVE (NEGATIVE); Hep C Virus Ab w/Reflex Quant NEGATIVE s/c (NEGATIVE)
[2022-05-07 19:53] LABS: Bacteria Urine Few (2-10); Culture Indicated Urine Specimen Cultured; RBC Urine 0-1/HPF (0-5/HPF); Squamous Epithelial Cell Urine 1-5 /HPF (0-5/HPF); WBC Urine 1-5/HPF (0-5/HPF)
[2022-05-09 01:44] LABS: RPR Screen Non Reactive (Non Reactive)
[2022-05-09 07:42] LABS: Varicella IgG Antibody 305 index (Immune >165)
[2022-05-09 10:32] LABS: Rubeola Measles IgG 13.7 AU/mL (Immune >16.4)
[2022-05-10 08:36] LABS: Mumps Virus IgG Antibody 49.7 AU/mL (Immune >10.9)
== END ==
PROVIDERS: Obstetrics & Gynecology; Family Provider Family Medicine; PCP Family Medicine; Referring Provider Obstetrics & Gynecology; Visit Provider Obstetrics & Gynecology
DX: Z34.01 Encounter for supervision of normal first pregnancy, first trimester (principal); Z3A.10 10 weeks gestation of pregnancy; Z31.69 Encounter for other general counseling and advice on procreation; D72.819 Decreased white blood cell count, unspecified; E87.5 Hyperkalemia
CPT/HCPCS: 36415; 80053; 80055; 81003; 81015; 86735; 86762; 86765; 86787; 86803; 86850; 86900; 86901; 87086; 87389

== ENCOUNTER 2022-10-28 10:40 | Outpatient (CLI) | payer OTHER, SELFPAY ==
[2022-10-28 11:44] LABS: Add Manual Diff / Slide Review NO; Basophils Absolute Auto 0 /uL (0-100); Basophils Percent Auto 0.2 % (0-2); Eosinophils Absolute Auto 100 /uL (0-450); Eosinophils Percent Auto 1.3 % (2-4); Hematocrit 28.8 % (36-46); Hemoglobin 9.7 g/dL (12.0-16.0); Lymphocytes Absolute Auto 900 /uL (1100-4500); Lymphocytes Percent Auto 13.4 % (25-40); Mean Corpuscular HGB Conc 33.7 % (30-36); Mean Corpuscular Hemoglobin 29.3 PG (26-34); Mean Corpuscular Volume 86.9 fL (80-100); Monocytes Absolute Auto 600 /uL (0-900); Monocytes Percent Auto 8.7 % (3-14); Neutrophils Absolute Auto 5300 /uL (1500-7000); Neutrophils Percent Auto 76.4 % (50-75); Platelet Count 175 X10^3/uL (150-400); Red Blood Cell Count 3.32 X10^6/uL (4.0-5.2); Red Cell Distribution Width 14.5 % (11.6-14.8)
[2022-10-28 11:55] LABS: Aspartate Aminotransferase 17 IU/L (14-36); BUN Creatinine Ratio 7.7 (6-22); Blood Urea Nitrogen 4 mg/dL (7-17); Estimated Glomerular Filt Rate > 60 mL/min (>60); Uric Acid 3.3 mg/dL (2.5-6.2)
[2022-10-28 12:10] LABS: Creatinine Urine Random 165.5 mg/dL; Protein (Total) Urine Random 6 mg/dL (0-12); Protein Creatinine Ratio Urine 0.03 GRAM/24H
== END 2022-10-28 12:45 | disposition home or self-care (01) ==
LOC: LABOR 10:50 → OB 10-31 12:03
PROVIDERS: Family Provider Family Medicine; PCP Family Medicine; Referring Provider Obstetrics & Gynecology; Visit Provider Obstetrics & Gynecology
DX: O26.893 Other specified pregnancy related conditions, third trimester (principal); R10.11 Right upper quadrant pain; Z3A.34 34 weeks gestation of pregnancy
CPT/HCPCS: 59025; 82570; 84156; 84450; 84550; 85025; G0378; G0379

== ENCOUNTER → 2022-11-08 10:43 | Outpatient (CLI) | payer OTHER, SELFPAY ==
[2022-11-08 16:58] LABS: Urine N gonorrhoeae NOT DETECTED
[2022-11-08 17:16] LABS: Urine Chlamydia NOT DETECTED
[2022-11-09 14:14] LABS: Strep Grp B PCR NEG for Grp B Strep
== END ==
PROVIDERS: Family Provider Family Medicine; PCP Family Medicine; Visit Provider Obstetrics & Gynecology
DX: Z34.03 Encounter for supervision of normal first pregnancy, third trimester (principal); Z3A.36 36 weeks gestation of pregnancy
CPT/HCPCS: 87491; 87591; 87653

== ENCOUNTER 2022-11-13 12:01 | Outpatient (CLI) | payer OTHER, SELFPAY | END 2022-11-13 12:52 | disposition home or self-care (01) | LOC: LABOR 13:24 → OB 11-15 13:53 | PROVIDERS: Family Provider Family Medicine; PCP Family Medicine; Referring Provider Obstetrics & Gynecology; Visit Provider Obstetrics & Gynecology | DX: O36.8130 Decreased fetal movements, third trimester, not applicable or unspecified (principal); Z3A.37 37 weeks gestation of pregnancy | CPT/HCPCS: 59025; G0378; G0379 ==

== ENCOUNTER 2022-11-18 07:03 | Inpatient (IN) | payer OTHER, SELFPAY ==
[2022-11-18 09:18] LABS: Add Manual Diff / Slide Review NO; Basophils Absolute Auto 0 /uL (0-100); Basophils Percent Auto 0.3 % (0-2); Eosinophils Absolute Auto 100 /uL (0-450); Eosinophils Percent Auto 0.8 % (2-4); Hematocrit 33.5 % (36-46); Lymphocytes Absolute Auto 1000 /uL (1100-4500); Lymphocytes Percent Auto 12.3 % (25-40); Mean Corpuscular HGB Conc 32.7 % (30-36); Mean Corpuscular Hemoglobin 28.2 PG (26-34); Mean Corpuscular Volume 86.2 fL (80-100); Monocytes Absolute Auto 600 /uL (0-900); Monocytes Percent Auto 7.8 % (3-14); Neutrophils Absolute Auto 6300 /uL (1500-7000); Neutrophils Percent Auto 78.8 % (50-75); Platelet Count 180 X10^3/uL (150-400); Red Blood Cell Count 3.89 X10^6/uL (4.0-5.2)
[2022-11-18 11:15] LABS: COVID19 -Nasal RAPID Negative (Negative)
[2022-11-18] MEDS: LACTATED RINGERS 1,000 ML 100 ML IV (18:30)
[2022-11-18] MEDS: CEFAZOLIN 2 GM/100 ML PREMIX 100 ML IV (18:30)
[2022-11-18] MEDS: FENT 2MCG/ML BUPIV 0.125% EPI 200 MCG/100 ML PLAST..BAG 8 MCG EPIDURAL (22:40)
[2022-11-19] MEDS: OXYTOCIN PREMIX 30 UNIT/500 ML PLAST..BAG IV (01:16)
[2022-11-19] MEDS: CEFAZOLIN VIAL 1 GM in SODIUM CHLORIDE 0.9% 100 ML IV (02:50)
[2022-11-19] MEDS: FENT 2MCG/ML BUPIV 0.125% EPI 200 MCG/100 ML PLAST..BAG 8 MCG EPIDURAL (05:33)
--- NOTE | 2022-11-19 07:38 | P.HPOB_ITS ---
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 Estimated Delivery Date Method Current WG Current Estimate 12/03/22 LMP (Certain) 38w 0d Other Estimates 12/03/22 Ultrasound #1 38w 0d 12/04/22 Ultrasound #2 37w 6d Estimated Gestational Age (weeks): 38 : 1 Para: 0 Narrative: SROM at 0600 am, clear care: good care, initiated at week # (10), number of visits (10) and pounds weight gain (23) Dating criteria OB: LMP confirmed by 1st trimester US Ultrasounds: normal 1st trimester US Obstetrical complications: none Medical complications OB: none Preadmission Labs Last OB Lab Results: Blood Type A Positive 11/18/22 08:10 Antibody Screen Negative 11/18/22 08:10 Hematocrit 33.5 % (36-46) L 11/18/22 08:10 Hemoglobin 11.0 g/dL (12.0-16.0) L 11/18/22 08:10 Hepatitis B Surface Antigen Negative s/c (NEGATIVE) 05/07/22 17 :41 Hepatitis C Antibody Negative s/c (NEGATIVE) 05/07/22 17:41 Rubella Antibody 14.0 IU/mL (>15) L 05/07/22 17:46 Varicella-Zoster IgG Antibody 305 index (Immune >165) 05/07/22 17:41 Group B Streptococcus (PCR) Neg for grp b strep 11/08/22 10:43 -: Chlamydia screen: negative, Gonorrhea screen: negative and Urine: negative -: PAP smear: Normal Genetic Screens: Quad screen: Normal and Alpha-fetoprotein: Normal External Labs -: Urine: negative Evaluation Evaluation Baseline heart rate: 135 Variability: Moderate (11-25) monitor accelerations: Present Monitor Decelerations: Absent Contraction Frequency (minutes): 8 Uterine Contraction Intensity: Mild Status: Category l Dilation (cm): 0 Effacement: 60-70% station: -3 Position of cervix: posterior Consistency: medium [facility] Medical History (Updated 05/07/22 @ 19:37 by Deepthi French) Chronic back pain Depression Human papilloma virus (~2011) Irregular menstrual cycle (~2010) Narcolepsy Ovarian cyst (~2020) Panic attack Presence of intrauterine contraceptive device Vitamin D deficiency Surgical History (Updated 05/07/22 @ 19:37 by Deepthi French) Anesthesia History of cholecystectomy (~2011) [place] teeth extracted (~2011) Family History (Updated 05/07/22 @ 19:40 by Deepthi French) Grandmother Hypertension Anxiety Depression Parkinson's disease Mother Hypertension Anxiety Depression Grandfather Colon cancer Sister Anxiety Depression Grandmother Alcoholism Social History marital status: number of children: 0 household members: spouse lives independently: Yes housing: house pets and animals: Yes (1 dog) education level: college (Associate's degree) 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) current occupational exposures/hazards: No special kate needs: No travel history: over 6 months ago seatbelt use: always water heater temp set < 120 deg: Yes working smoke detector in home: Yes fire extinguisher in home: Yes carbon monox detector in home: Yes firearms in home: No do you feel safe at home: Yes Smoking Status: Never smoker second hand exposure: No alcohol intake: former substance use type: marijuana (very rarely) during the past year weight has: remained stable well-balanced diet: daily or most days daily servings fruits/ve-4 caffeine: Yes (Aware of 200mg limit) Type(s) of exercise: walking frequency: daily additional social history: Likely will be traveling to [place] to spend most of this w/ family 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 Aware of 36 week restriction on travel and planning to return ~34-35 weeks. Meds Home Medications and Allergies Home Medications Medication Instructions Recorded Confirmed Type prenat.vits,lloyd,[id number]-[id number] 1 tab PO DAILY 04/16/22 11/08/22 History ondansetron 4 mg disintegrating 4 mg PO Q6H PRN nausea and 06/10/22 11/08/22 Rx tablet vomiting #30 tabs Double electric breast pump 1 ea topical .prn #1 ea 10/17/22 11/08/22 Rx metoclopramide HCl 10 mg tablet 10 mg PO Q6H PRN nausea and 10/24/22 11/08/22 Rx (Reglan) vomiting #20 tabs Allergies Allergy/AdvReac Type Severity Reaction Status Date / Time amoxicillin AdvReac Severe Yeast Verified 11/08/22 10:35 infection ceftriaxone [From Rocephin] AdvReac Mild Flushing Verified 11/18/22 18:18 OB Exam Narrative Exam Narrative: Generally: Patient walking around in room, no acute distress Lungs: Clear to auscultation bilaterally Cardiovascular: Regular rate and rhythm Fundal height: 39 cm Estimated weight: 7-1/2 lb Extremities: No edema Objective Labs 11/18/22 08:10 Labs: Laboratory Results - last 24 hr 11/18/22 11/18/22 11/18/22 08:10 08:10 10:30 WBC 8.0 RBC 3.89 L Hgb 11.0 L Hct 33.5 L MCV 86.2 MCH 28.2 MCHC 32.7 RDW 15.0 H Plt Count 180 Neut % (Auto) 78.8 H Lymph % (Auto) 12.3 L Allen % (Auto) 7.8 Eos % (Auto) 0.8 L Baso % (Auto) 0.3 Neut # (Auto) 6300 Lymph # (Auto) 1000 L Allen # (Auto) 600 Eos # (Auto) 100 Baso # (Auto) 0 SARS-CoV-2 (PCR) Negative Blood Type A Positive Antibody Screen Negative Assessment and Plan Assessment and Plan Assessment and Plan narrative: Assessment: 27-year-old 1 para 0 at 38 weeks gestation with spontaneous rupture of membranes with clear amniotic fluid Not in active labor GBS negative Plan: Wait and see what happens over the next few hours Epidural as necessary Expected management to spontaneous vaginal delivery Time Spent with Patient Total time spent with greater than 50% in coordination of care (as documented) at patient's floor/unit and/or counseling patient:: 15-24 minutes
--- NOTE | 2022-11-19 07:52 | PM.OBPNLAB ---
Date/Time Date Patient Seen: 11/18/22 Time Patient Seen: 18:30 Pain Control Pain control: tolerating well Pelvic Exam Dilation (cm): 1 Effacement (%): 80 station: -2 Amniotic membrane status: Ruptured Contractions Contractions on admission: irregular Monitor mode: External Contraction frequency (min): 4 Contraction duration (min): 1 Contraction pattern: Irregular Contraction intensity: Moderate Status status: Category l Heart Rate Baseline: 135 Monitor Accelerations: Present Monitor Decelerations: Absent Monitor Variability: Moderate Assessment and Plan Assessment: other (Early labor) Comments: Begin antibiotics Pitocin augmentation as needed Epidural as needed Expectant management to
--- NOTE | 2022-11-19 08:28 | PM.OBPRVD ---
Events: Labor Augmentation and Premature Rupture Membrane Labor & Delivery Delivery date: 11/19/22 Intrapartal Events: Prolonged Labor > 20 hours and Prolonged Latent Phase Cervical ripening method: none Induction method: none Delivery augmentation: pitocin Delivery monitor: external FHT and external uterine Route of delivery: Episiotomy description: None L&D Laceration Description: Perineal - 2nd Degree and Vaginal - 2nd Degree Delivery repair: vicryl and chromic Quantitative Blood Loss: 80 Anesthesia Type: Epidural Complications: None Narrative: Patient complete at 12:37 a.m.. She began pushing. She pushed for 25 minutes. At 8:02 a.m., a live male infant delivered spontaneously in the SALVADOR presentation, over an intact perineum. A tight nuchal cord x1 was cut on the perineum. The remainder of the body delivered without difficulty and was placed on mom's abdomen. Cord bloods were obtained. Pitocin was given in the IV fluids. The placenta delivered intact with a three-vessel cord at 8:04 a.m.. A second-degree vaginal/perineal laceration was repaired in the usual fashion. Hemostasis was achieved. The fundus was massaged to firm. QBL 80 cc. Apgars 9 at 1 minute and 9 at 5 minutes. . Epidural analgesia. Mom and infant stable to recovery. Baby 1: gender: Male Presentation: vertex Position: Right Occiput Anterior Placenta delivery description: Spontaneous Cord Vessel Description: 3 Vessels, Nuchal Cord, Tight and Clamped/Cut (On the perineum) score (1 min): 9 score (5 min): 9 weight: 7 lb 9.9 oz Plan for aftercare: Routine care
[2022-11-19] MEDS: IBUPROFEN 600 MG TABLET PO ×3 (09:48→22:59)
[2022-11-19] MEDS: ACETAMINOPHEN 325 MG TABLET 650 MG PO ×3 (09:49→22:59)
[2022-11-19] MEDS: LANOLIN OINT 7 GM 1 APPLIC TOP (23:00)
[2022-11-20] MEDS: IBUPROFEN 600 MG TABLET PO ×2 (04:43→14:07)
[2022-11-20] MEDS: ACETAMINOPHEN 325 MG TABLET 650 MG PO ×2 (04:44→14:07)
[2022-11-20 05:54] LABS: Hemoglobin 9.5 g/dL (12.0-16.0)
--- NOTE | 2022-11-20 08:05 | PM.OBDS.1 ---
Discharge Providers Provider Date of admission: 11/18/22 07:03 Discharge Date: 11/20/22 Primary care physician: Henrry Carlson MD Consults: 11/20/22 08:25 Consult to C[employer] Mechanic Routine Comment: Discharge provider: Mikayla Elizondo MD Summary Hospital Course Date Patient Seen: 11/20/22 Time Patient Seen: 08:06 Diagnoses: Thirty-eight weeks gestation Prolonged rupture of membranes Spontaneous vaginal delivery Second-degree perineal/vaginal laceration and repair Tight nuchal cord x1 Hospital Course: Patient is a 27-year-old 1 para 1 who presented on November 18, 2022 with spontaneous rupture membranes with clear fluid. She was not ashanti initially. She progressed into active labor. She received an epidural for pain management. Pitocin augmentation was started. She progressed to complete dilation and had a spontaneous vaginal delivery. A tight nuchal cord x1 was cut on the perineum. She had a second-degree perineal/vaginal laceration which was repaired. Her course was unremarkable. She was discharged home on day #1. Peripartum Data Infant Delivery Method: Natural Vaginal Laceration Description: Perineal - 2nd Degree and Vaginal - 2nd Degree Episiotomy description: None Procedures: Epidural analgesia Spontaneous vaginal delivery Second-degree vaginal/perineal laceration repair complications: none [place] 1: Gender: Male Disposition of : home Status at Discharge Cognitive/behavioral status at discharge: oriented Functional status at discharge: independent ambulation Overall status at discharge: patient is progressing back to baseline Time Spent with Patient Time attestation: Total time spent providing and/or coordinating discharge services: Time spent: Less than 30 minutes Objective Labs 11/20/22 05:39 Labs: Laboratory Results - last 24 hr 11/20/22 05:39 Hgb 9.5 L Hct 28.0 L Exam Narrative Exam Narrative: Generally: Patient is sitting up in bed, holding infant, no acute distress Fundus: Firm at U -1 Extremities: No edema, negative Homans Discharge Plan Discharge Plan Patient Disposition: Home Provider Discharge Comment: Call with fever, chills, or bleeding vaginally more than a pad in an hour Ibuprofen 600 mg every 6 hours as needed for cramping Tylenol 650 mg every 6 hours as needed Discharge orders & Medications Prescriptions: Continued Double electric breast pump 1 ea topical .prn Qty: 1 0RF Rx Instructions: Breast pump and supplies. JUVENCIO 12/03/22 prenat.vits,lloyd,zii-java-[id number] Tablet 1 tab PO DAILY Discontinued ondansetron 4 mg tablet,disintegrating 4 mg PO Q6H PRN (Reason: nausea and vomiting) Qty: 30 2RF metoclopramide HCl [Reglan] 10 mg tablet 10 mg PO Q6H PRN (Reason: nausea and vomiting) Qty: 20 2RF Follow up/Referrals: Mikayla Elizondo MD [Physician] - 6 Weeks Diet/Activity/Treatments Diet: Regular Activity: Nothing in the vagina for 6 weeks Skin/Wound/Dressing Care Report to your healthcare provider any signs of infection, such as:: chills, fever, increased pain and unusual drainage Visit Report/Discharge Packet Instructions: DI for Labor and Delivery, Vaginal Stand Alone Forms: Patient Portal/API, Stroke Signs & Symptoms Discharge Data Primary Care Provider: Henrry Carlson
[2022-11-20] MEDS: PRENATAL VIT,CALC/IRON/FOLIC 1 TABLET 1 TAB PO (14:06)
[2022-11-20] MEDS: DOCUSATE 100 MG CAPSULE PO (14:07)
[2022-11-20] MEDS: MEASLES,MUMPS,RUBELLA VACC/PF 0.5 ML VIAL SUBCUT (14:09)
[2022-11-20 14:47] VITALS: BP 117/69
[2022-11-20 14:52] VITALS: BP 108/67; PULSE 80; RESP 16; TEMP 36.9
== END 2022-11-20 15:40 | disposition home or self-care (01) | DRG 807 ==
PROVIDERS: Admitting Provider Obstetrics & Gynecology; Family Provider Family Medicine; PCP Family Medicine; Referring Provider Obstetrics & Gynecology; Visit Provider Obstetrics & Gynecology
DX: O42.12 Full-term premature rupture of membranes, onset of labor more than 24 hours following rupture (principal); Z37.0 Single live birth; O63.0 Prolonged first stage (of labor); Z3A.38 38 weeks gestation of pregnancy; O70.1 Second degree perineal laceration during delivery; O69.81X0 Labor and delivery complicated by cord around neck, without compression, not applicable or unspecified; Z20.822 Contact with and (suspected) exposure to COVID-19
CPT/HCPCS: 36415; 59050; 59410; 85014; 85018; 85025; 86850; 86900; 86901; 87635; C9803; G0379; J0690; J2590

== ENCOUNTER → 2023-03-24 16:51 | Outpatient (CLI) | payer OTHER, SELFPAY ==
[2023-03-24 18:39] LABS: Hematocrit 36.3 % (36-46); Hemoglobin 12.3 g/dL (12.0-16.0); Mean Corpuscular HGB Conc 33.8 % (30-36); Mean Corpuscular Hemoglobin 29.2 PG (26-34); Mean Corpuscular Volume 86.4 fL (80-100); Platelet Count 199 X10^3/uL (150-400); Red Cell Distribution Width 13.7 % (11.6-14.8); White Blood Cell Count 4.7 X10^3/uL (4.5-11.0)
== END ==
PROVIDERS: Family Provider Family Medicine; PCP Family Medicine; Referring Provider Obstetrics & Gynecology; Visit Provider Obstetrics & Gynecology
DX: D64.9 Anemia, unspecified (principal); R53.83 Other fatigue
CPT/HCPCS: 36415; 85027

== ENCOUNTER → 2023-04-01 12:08 | Outpatient (CLI) | payer OTHER, SELFPAY ==
[2023-04-01 13:22] LABS: Free T3, Triiodothyronine Free 3.92 pg/mL (2.77-5.27)
[2023-04-01 13:36] LABS: Thyroid Stimulating Hormone 1.16 uIU/mL (0.47-4.68)
== END ==
PROVIDERS: Family Provider Family Medicine; PCP Family Medicine; Referring Provider Family Medicine; Visit Provider Family Medicine
DX: O92.4 Hypogalactia (principal)
CPT/HCPCS: 36415; 82627; 84439; 84443; 84481